=== PATIENT | male | born 1960 | race Caucasian/White ===

== ENCOUNTER → 2016-06-15 | Outpatient (CLI) | payer BC ==
[~2016-06-15] VITALS: Ht 185.4 cm; Wt 113.4 kg
[~2016-06-15] MED LIST: ALEV220C2 PO; ASPI81TA2 PO; ASPI81TA85 PO; LIDOCAINE 2% INJ 100 MG/5 ML SDV (FOR ANES.) As Ordered ONE; NEXI20CA PO; NS 1,000 ML IV SCH; PRAM1TAB3 PO; PROPOFOL 200 MG/20 ML VIAL As Ordered ONE; TYLE325T5 PO; ZANT150T PO
--- NOTE | 2016-06-15 11:22 | ROOR ---
Patient Name: Kyle Beckman Procedure Date: 06/15/2016 10:56 AM Date of : 1960 Age: 56 Room: [facility] Gender: Male Note Status: Finalized Procedure: Colonoscopy Indications: High risk colon cancer surveillance: Personal history of colonic polyps, Last colonoscopy: March 2013 Providers: Ronaldo ROCK MD Referring MD: Steve Becker MD Requesting Provider: Medicines: Monitored Anesthesia Care Complications: No immediate complications. Procedure: Pre-Anesthesia Assessment: - The heart rate, respiratory rate, oxygen saturations, blood pressure, adequacy of pulmonary ventilation, and response to care were monitored throughout the procedure. The Colonoscope was introduced through the anus and advanced to the cecum, identified by appendiceal orifice and ileocecal valve. The colonoscopy was performed without difficulty. The patient tolerated the procedure well. The quality of the bowel preparation was good. Findings: The perianal exam findings include a skin tag. (Exam: Complete, Prep: Good or Excellent.) Two sessile polyps were found in the proximal ascending colon. The polyps were diminutive in size. These polyps were removed with a cold snare. Resection and retrieval were complete. Multiple small and large-mouthed diverticula were found in the sigmoid colon. Small Internal Hemorrhoids. The exam was otherwise without abnormality on direct and retroflexion views. Impression: - Perianal skin tag found on perianal exam. - Two diminutive polyps in the proximal ascending colon, removed with a cold snare. Resected and retrieved. - Mild diverticulosis in the sigmoid colon. - Small Internal Hemorrhoids. - The examination was otherwise normal on direct and retroflexion views. Recommendation: - Await pathology results. - Telephone endoscopist for pathology results in 2 weeks. - Repeat colonoscopy in 5 years for surveillance based on personal history of previous adenomatous polyps. Ronaldo Rock MD Ronaldo ROCK MD 06/15/2016 11:22:11 AM This report has been signed electronically. Number of Addenda: 0 Note Initiated On: 06/15/2016 10:56 AM Estimated Blood Loss: Estimated blood loss: none.
[2016-06-15 11:50] VITALS: BP 154/89
== END | disposition home or self-care (01) ==
LOC: M OPP 09:58
PROVIDERS: ATTEND Internal Medicine Gastroenterology
DX: Z12.11 Encounter for screening for malignant neoplasm of colon (principal); D12.2 Benign neoplasm of ascending colon; K57.30 Diverticulosis of large intestine without perforation or abscess without bleeding; K64.8 Other hemorrhoids; Z86.010 Personal history of colon polyps; K42.9 Umbilical hernia without obstruction or gangrene; M19.90 Unspecified osteoarthritis, unspecified site; G47.30 Sleep apnea, unspecified; R06.83 Snoring; R12 Heartburn; Z87.891 Personal history of nicotine dependence; Z79.82 Long term (current) use of aspirin; Z79.899 Other long term (current) drug therapy; Z80.42 Family history of malignant neoplasm of prostate; Z80.8 Family history of malignant neoplasm of other organs or systems

== ENCOUNTER 2016-09-20 12:51 | Emergency (ER) | payer BC ==
[~2016-09-20] VITALS: Ht 185.4 cm; Wt 125.8 kg
[~2016-09-20 12:51] MED LIST changes: -LIDOCAINE 2% INJ 100 MG/5 ML SDV (FOR ANES.) As Ordered ONE; -NS 1,000 ML IV SCH; -PROPOFOL 200 MG/20 ML VIAL As Ordered ONE
[2016-09-20 13:34] LABS: MEAN CORPUSCULAR HEMOGLOBIN 27.3 pg (27.0-33.0); MEAN CORPUSCULAR HGB CONC 32.5 g/dl (32.0-36.5); RED CELL DISTRIBUTION WIDTH 14.2 % (11.5-14.5); WHITE BLOOD COUNT 6.3 K/mm3 (4.0-10.0)
[2016-09-20 13:46] LABS: INR 0.94
[2016-09-20 13:56] LABS: ANION GAP 6 MEQ/L (8-16); BLOOD UREA NITROGEN 25 MG/DL (7-18); CALCIUM LEVEL 8.3 MG/DL (8.5-10.1); CARBON DIOXIDE LEVEL 26 MEQ/L (21-32); CHLORIDE LEVEL 109 MEQ/L (98-107); CREATININE FOR GFR 1.07 MG/DL (0.70-1.30); GLOMERULAR FILTRATION RATE > 60.0 (>56); GLUCOSE, FASTING 95 MG/DL (70-105); SODIUM LEVEL 141 MEQ/L (136-145)
--- NOTE | 2016-09-20 14:01 | REP ---
Clinical: Pain and swelling . Technique: Og scale and color Doppler evaluation using linear high frequency transducer. Findings: Ultrasound examination of the right and left lower extremity deep venous structures from the common femoral vein to the popliteal vein demonstrates normal compressibility flow and wave patterns in response to respiration and augmentation. There is no evidence for deep venous thrombosis. Impression: No evidence for deep venous thrombosis bilateral lower extremities . Signed by Julian Avalos MD 09/20/2016 01:52 P
[2016-09-20] MEDS ORDERED: FUROSEMIDE 20 MG TAB PO ONE (14:15)
--- NOTE | 2016-09-20 14:15 | REP ---
Clinical: Chest pain . Comparison: 02/15/2016 . Technique: PA and lateral. Findings: The mediastinum and cardiac silhouette are normal. The lung guerrero are clear and without acute consolidation, effusion, or pneumothorax. The skeletal structures are intact and normal. Impression: 1. No acute cardiopulmonary process. Signed by Julian Avalos MD 09/20/2016 02:05 P
[2016-09-20 14:28] VITALS: BP 149/89
--- NOTE | 2016-09-22 07:16 | ECGEPIP ---
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
== END 2016-09-20 14:29 | disposition home or self-care (01) ==
LOC: M ED 14:24
DX: I73.9 Peripheral vascular disease, unspecified (principal); G62.9 Polyneuropathy, unspecified; Z87.891 Personal history of nicotine dependence; Z79.899 Other long term (current) drug therapy

== ENCOUNTER 2016-12-23 18:58 | Emergency (ER) | payer BC ==
[~2016-12-23] VITALS: Ht 185.4 cm; Wt 125.0 kg
[2016-12-23] MEDS ORDERED: DIGOXIN INJ 0.5 MG/2 ML AMP (J1160) IV STA (19:39)
[2016-12-23] MEDS ORDERED: METOPROLOL 5 MG/5 ML VIAL IV STA (20:21)
[2016-12-23] MEDS ORDERED: ASPIRIN 325 MG TAB PO ONE (20:30)
[2016-12-23 20:43] LABS: BASO % 0.4 % (0.0-1.0); EOS # 0.2 10^3/uL (0.0-0.50); EOS % 2.2 % (0.0-3.0); IMMATURE GRANULOCYTE % 0.3 % (0-0); LYMPH # 1.5 10^3/uL (1.5-4.5); LYMPH % 21.4 % (24.0-44.0); MEAN CORPUSCULAR HEMOGLOBIN 26.2 pg (27.0-33.0); MEAN CORPUSCULAR HGB CONC 32.1 g/dl (32.0-36.5); MEAN CORPUSCULAR VOLUME 81.8 fl (80.0-96.0); MONO # 0.8 10^3/uL (0.0-0.8); MONO % 12.2 % (0.0-5.0); NEUTROPHILS # 4.4 10^3/uL (1.8-7.7); NEUTROPHILS % 63.5 % (36.0-66.0); PLATELET COUNT, AUTOMATED 240 10^3/uL (150-450); RED CELL DISTRIBUTION WIDTH 15.3 % (11.5-14.5); WHITE BLOOD COUNT 6.9 10^3/uL (4.0-10.0)
[2016-12-23 20:47] LABS: ADD MORPHOLOGY? NO
[2016-12-23 20:52] LABS: ANION GAP 8 MEQ/L (8-16); BLOOD UREA NITROGEN 17 MG/DL (7-18); CALCIUM LEVEL 8.1 MG/DL (8.5-10.1); CARBON DIOXIDE LEVEL 25 MEQ/L (21-32); CHLORIDE LEVEL 111 MEQ/L (98-107); CREATININE FOR GFR 0.94 MG/DL (0.70-1.30); GLOMERULAR FILTRATION RATE > 60.0 (>56); GLUCOSE, FASTING 97 MG/DL (70-105); POTASSIUM SERUM 3.2 MEQ/L (3.5-5.1); SODIUM LEVEL 144 MEQ/L (136-145); T UPTAKE 36 % (33-40); THYROXINE (T4) 8.9 UG/DL (4.5-12.0)
[2016-12-23] MEDS ORDERED: DIGO0.259 PO (20:58)
[2016-12-23] MEDS ORDERED: ASPI81TA85 PO (20:58)
[2016-12-23 21:39] VITALS: BP 127/77
--- NOTE | 2016-12-25 05:59 | ECGEPIP ---
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
--- NOTE | 2016-12-25 06:00 | ECGEPIP ---
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
== END 2016-12-23 21:42 | disposition home or self-care (01) ==
LOC: M ED 19:58
DX: I48.91 Unspecified atrial fibrillation (principal); I48.92 Unspecified atrial flutter; K21.9 Gastro-esophageal reflux disease without esophagitis; G25.81 Restless legs syndrome; Z79.899 Other long term (current) drug therapy
CPT/HCPCS: 80048; 82550; 82553; 84436; 84443; 84479; 85025; 93005; 96374; 99284; J1160

== ENCOUNTER → 2017-01-07 | Outpatient (CLI) | payer BC ==
[~2017-01-07] MED LIST changes: +DIGO0.259 PO
[2017-01-07 06:44] LABS: MEAN CORPUSCULAR HEMOGLOBIN 26.1 pg (27.0-33.0); MEAN CORPUSCULAR HGB CONC 31.5 g/dl (32.0-36.5); MEAN CORPUSCULAR VOLUME 82.7 fl (80.0-96.0); RED CELL DISTRIBUTION WIDTH 15.8 % (11.5-14.5); WHITE BLOOD COUNT 4.9 10^3/uL (4.0-10.0)
[2017-01-07 07:15] LABS: ALKALINE PHOSPHATASE 61 U/L (45-117); ALT/SGPT 26 U/L (12-78); ANION GAP 6 MEQ/L (8-16); AST/SGOT 13 U/L (15-37); BILIRUBIN,TOTAL 0.4 MG/DL (0.2-1.0); BLOOD UREA NITROGEN 23 MG/DL (7-18); CALCIUM LEVEL 8.5 MG/DL (8.5-10.1); CARBON DIOXIDE LEVEL 28 MEQ/L (21-32); CHLORIDE LEVEL 109 MEQ/L (98-107); CREATININE FOR GFR 1.11 MG/DL (0.70-1.30); GLOMERULAR FILTRATION RATE > 60.0 (>56); GLUCOSE, FASTING 101 MG/DL (70-105); POTASSIUM SERUM 4.5 MEQ/L (3.5-5.1); SODIUM LEVEL 143 MEQ/L (136-145); TRIGLYCERIDES LEVEL 36 MG/DL (<150)
[2017-01-07 07:16] LABS: ALBUMIN 3.8 GM/DL (3.2-5.2); ALBUMIN/GLOBULIN RATIO 1.36 (1.00-1.93); CHOLESTEROL LEVEL 176 MG/DL (<200); TOTAL PROTEIN 6.6 GM/DL (6.4-8.2)
== END ==
LOC: M LAB 06:21
PROVIDERS: ATTEND Family Medicine
DX: G47.30 Sleep apnea, unspecified (principal); E78.2 Mixed hyperlipidemia; Z12.5 Encounter for screening for malignant neoplasm of prostate

== ENCOUNTER → 2017-10-15 | Outpatient (REF) | payer OTHER ==
[2017-10-15 19:39] LABS: HEMATOCRIT 41.4 % (42.0-52.0); HEMOGLOBIN 13.5 g/dl (13.5-17.5); MEAN CORPUSCULAR HEMOGLOBIN 27.7 pg (27.0-33.0); MEAN CORPUSCULAR HGB CONC 32.6 g/dl (32.0-36.5); PLATELET COUNT, AUTOMATED 220 10^3/uL (150-450); RED BLOOD COUNT 4.87 10^6/uL (4.30-6.10); RED CELL DISTRIBUTION WIDTH 15.3 % (11.5-14.5); WHITE BLOOD COUNT 6.1 10^3/uL (4.0-10.0)
[2017-10-15 19:51] LABS: ALBUMIN 3.9 GM/DL (3.2-5.2); ALBUMIN/GLOBULIN RATIO 1.34 (1.00-1.93); ALKALINE PHOSPHATASE 56 U/L (45-117); ALT/SGPT 27 U/L (12-78); ANION GAP 8 MEQ/L (8-16); AST/SGOT 15 U/L (7-37); BILIRUBIN,TOTAL 0.5 MG/DL (0.2-1.0); BLOOD UREA NITROGEN 23 MG/DL (7-18); CALCIUM LEVEL 8.6 MG/DL (8.5-10.1); CARBON DIOXIDE LEVEL 28 MEQ/L (21-32); CHLORIDE LEVEL 109 MEQ/L (98-107); CHOLESTEROL LEVEL 177 MG/DL (<200); CHOLESTEROL RISK RATIO 2.901 (<5); CREATININE FOR GFR 1.01 MG/DL (0.70-1.30); ESTIMATED AVERAGE GLUCOSE 117 MG/DL (60-110); FREE T4 1.03 NG/DL (0.76-1.46); GLOMERULAR FILTRATION RATE > 60.0 (>56); GLUCOSE, FASTING 88 MG/DL (70-100); HDL CHOLESTEROL 61 MG/DL (>40); HEMOGLOBIN A1c 5.7 %; LDL CHOLESTEROL 105.6 MG/DL (<100); MAGNESIUM LEVEL 2.4 MG/DL (1.8-2.4); NON-HDL-C 116 MG/DL; POTASSIUM SERUM 4.1 MEQ/L (3.5-5.1); PSA SCREENING 1.39 NG/ML (< 4.0); SODIUM LEVEL 145 MEQ/L (136-145); THYROID STIMULATING HORMONE 0.607 uIU/ML (0.358-3.740); TOTAL PROTEIN 6.8 GM/DL (6.4-8.2); TRIGLYCERIDES LEVEL 52 MG/DL (<150)
== END ==
LOC: M SFHCADAM 16:27
DX: R10.10 Upper abdominal pain, unspecified (principal); K42.0 Umbilical hernia with obstruction, without gangrene

== ENCOUNTER → 2017-12-23 | Outpatient (CLI) | payer OTHER ==
[2017-12-23 06:59] LABS: HEMATOCRIT 40.9 % (42.0-52.0); HEMOGLOBIN 12.8 g/dl (13.5-17.5); MEAN CORPUSCULAR HEMOGLOBIN 27.6 pg (27.0-33.0); MEAN CORPUSCULAR HGB CONC 31.3 g/dl (32.0-36.5); MEAN CORPUSCULAR VOLUME 88.1 fl (80.0-96.0); PLATELET COUNT, AUTOMATED 212 10^3/uL (150-450); RED BLOOD COUNT 4.64 10^6/uL (4.30-6.10); WHITE BLOOD COUNT 6.1 10^3/uL (4.0-10.0)
== END ==
LOC: M LAB 06:32
DX: G25.81 Restless legs syndrome (principal)
CPT/HCPCS: 85027

== ENCOUNTER → 2017-12-23 | Outpatient (CLI) | payer OTHER ==
[2017-12-29 08:49] LABS: Monitr Crohn's Disease SEE SEPARATE REPORT
== END ==
LOC: M LAB 06:36
DX: R10.9 Unspecified abdominal pain (principal)

== ENCOUNTER → 2018-02-23 | Outpatient (CLI) | payer OTHER ==
[~2018-02-23] MED LIST changes: -ALEV220C2 PO; -ASPI81TA2 PO; -ASPI81TA85 PO; -DIGO0.259 PO; +E-Z-PAQUE 96% w/w SUSP 176GM BTL As Ordered; -NEXI20CA PO; -PRAM1TAB3 PO; -TYLE325T5 PO; -ZANT150T PO
== END ==
LOC: M RAD 08:05
DX: K22.711 Barrett's esophagus with high grade dysplasia (principal); K42.9 Umbilical hernia without obstruction or gangrene; R10.84 Generalized abdominal pain
CPT/HCPCS: 74250

== ENCOUNTER 2018-04-05 09:31 | Day surgery (SDC) | payer OTHER ==
[~2018-04-05] VITALS: Ht 185.4 cm; Wt 111.1 kg
[~2018-04-05 09:31] MED LIST changes: +ALEV220C2 PO; +ASPI81TA2 PO; +ASPI81TA85 PO; +CANNABIS PO; +DIGO0.259 PO; -E-Z-PAQUE 96% w/w SUSP 176GM BTL As Ordered; +LR 1,000 ML IV ONE; +NEXI20CA PO; +PEPC1TAB5 PO; +PRAM1TAB7 PO; +ROPI0.5T PO; +TYLE325T5 PO; +TYLE650T35 PO; +ZANT150T PO; +ZANTTAB PO; +ceFAZolin SOD 1 GM in D5W MINI-BAG PLUS 50 ML IV ONE
[2018-04-05] MEDS ORDERED: MIDAZOLAM INJ 2 MG/2 ML VIAL (J2250) As Ordered ONE (09:36)
[2018-04-05] MEDS ORDERED: LIDOCAINE 2% INJ 100 MG/5 ML SDV (FOR ANES.) As Ordered ONE (09:36)
[2018-04-05] MEDS ORDERED: PROPOFOL 200 MG/20 ML VIAL As Ordered ONE (09:36)
[2018-04-05] MEDS ORDERED: fentaNYL 100 MCG/2 ML INJECTION (J3010) As Ordered ONE ×2 (09:36→12:05)
[2018-04-05] MEDS ORDERED: ONDANSETRON 4MG/2ML VIAL (J2405) As Ordered ONE (09:36)
[2018-04-05] MEDS ORDERED: METOCLOPRAMIDE INJ 10MG/2ML VIAL (J2765) As Ordered ONE (09:36)
[2018-04-05] MEDS ORDERED: ROCURONIUM BROMIDE 50 MG/5 ML VIAL As Ordered ONE (09:36)
[2018-04-05] MEDS ORDERED: BUPIVACAINE/EPIN 0.25% 30 ML VIAL As Ordered ONE (10:52)
[2018-04-05] MEDS ORDERED: BUPIVACAINE LIPOSOME/PF 1.3% 20ML VIAL (13.3MG/ML)(EXPAREL)(C9290 PER1MG) As Ordered ONE (10:53)
[2018-04-05] MEDS ORDERED: GLYCOPYRROLATE INJ 0.2 MG/ML 2 ML VIAL As Ordered ONE ×2 (10:53→11:56)
[2018-04-05] MEDS ORDERED: BUPIVACAINE HCL 0.25% 30 ML VIAL As Ordered ONE (11:09)
[2018-04-05] MEDS ORDERED: NEOSTIGMINE 10 MG/10 ML VIAL (J2710) As Ordered ONE (11:55)
[2018-04-05] MEDS ORDERED: PERCOCET 5MG/325MG TAB As Ordered ONE (12:15)
[2018-04-05] MEDS: MORPHINE 4 MG/ML 1ML VIAL/SYRINGE (J2270) IV PRN ×2 (12:30→12:40)
[2018-04-05] MEDS ORDERED: PERCOCET 5MG/325MG TAB PO PRN (12:30)
[2018-04-05] MEDS ORDERED: NORCO, ANEXSIA 5/325MG TABLET (HYDROcodone/ACETAMINOPHEN) PO PRN (12:30)
[2018-04-05] MEDS ORDERED: ONDANSETRON 4MG/2ML VIAL (J2405) IV PRN (12:30)
[2018-04-05] MEDS ORDERED: fentaNYL 100 MCG/2 ML INJECTION (J3010) IV PRN (12:30)
[2018-04-05] MEDS ORDERED: LR 1,000 ML IV SCH ×2 (12:30)
--- NOTE | 2018-04-05 12:33 | RO ---
DATE OF PROCEDURE: 04/05/2018 PREOPERATIVE DIAGNOSIS: Umbilical hernia. POSTOPERATIVE DIAGNOSIS: Umbilical hernia. PROCEDURE PERFORMED: Umbilical hernia repair with ventral patch. SURGEON: Dr. Mark Giles. PACKING ROOM WORKER: ANESTHESIA: General endotracheal anesthesia. ESTIMATED BLOOD LOSS: Minimal. FLUIDS: Crystalloid. DESCRIPTION OF PROCEDURE: The patient was brought to the operating room was given general anesthesia. After adequate anesthesia and preoperative antibiotics were given the patient was prepped and draped in sterile fashion. Next a periumbilical incision was made with skin knife. Blunt dissection was carried down to fascia following the hernia sac. The hernia sac was quite large and there was actually some ulceration on the umbilicus itself and I resected this area of the skin at the umbilicus. But in any case, the hernia sac was transected at the level of the fascia first putting clamps across the edges of the hernia sac and then ligating this with Vicryl ties. Eventually this was removed in its entirety. There was a great deal of preperitoneal fat that had come up from the inferior aspect of bladder area and at the umbilicus. But in any case, after all this had been ligated and transected the fascial defect was of such size that I felt he would benefit from a ventral patch. This was placed in the peritoneum abutting circumferentially and the fascial defect was closed with three [id number] 0-Ethibond sutures in a vertical manner. The dermis and was brought together with #3-0 Vicryl, #4-0 Vicryl was used to approximate the skin and Dermabond was used close the incision. Unfortunately, because of the skin loss that was appreciated with the ulceration at the umbilicus, the incision was right in the middle of the umbilicus and thus not amenable to placing typical Steri-Strips. Thus the 2 x 2s were placed on this as well as a medium OpSite and the patient was awakened, extubated, brought to recovery room awake, alert hemodynamic stable. Sponge and needle counts correct times two.
[2018-04-05 14:43] VITALS: BP 164/70
== END 2018-04-05 15:00 | disposition home or self-care (01) ==
LOC: M SDC 09:31
PROVIDERS: ATTEND Surgery
DX: K42.9 Umbilical hernia without obstruction or gangrene (principal); I48.0 Paroxysmal atrial fibrillation; K44.9 Diaphragmatic hernia without obstruction or gangrene; M12.9 Arthropathy, unspecified; G62.9 Polyneuropathy, unspecified; K21.9 Gastro-esophageal reflux disease without esophagitis; R06.83 Snoring; G47.30 Sleep apnea, unspecified; F17.200 Nicotine dependence, unspecified, uncomplicated; E66.09 Other obesity due to excess calories; Z68.32 Body mass index [BMI] 32.0-32.9, adult; Z79.899 Other long term (current) drug therapy
CPT/HCPCS: 49585; 88302; C1781; C9290; J0690; J2250; J2270; J2405; J2710; J2765; J3010

== ENCOUNTER → 2018-05-23 | Outpatient (REF) | payer OTHER ==
[~2018-05-23] MED LIST changes: -LR 1,000 ML IV ONE; -ceFAZolin SOD 1 GM in D5W MINI-BAG PLUS 50 ML IV ONE
== END ==
LOC: M LAB REF 18:53
PROVIDERS: ATTEND Surgery
DX: L72.3 Sebaceous cyst (principal)

== ENCOUNTER → 2018-09-06 | Outpatient (REF) | payer OTHER ==
[~2018-09-06] MED LIST changes: +ZANT150T40 PO; -ZANTTAB PO
[2018-09-06 20:07] LABS: FOLATE 14.5 NG/ML
== END ==
LOC: M SFHCADAM 11:59
PROVIDERS: ATTEND Physician Assistant
DX: D51.3 Other dietary vitamin B12 deficiency anemia (principal)

== ENCOUNTER → 2018-10-04 | Outpatient (REF) | payer OTHER | LOC: M SFHCPLAZ 13:28 | PROVIDERS: ATTEND Physician Assistant | DX: E53.8 Deficiency of other specified B group vitamins (principal) ==

== ENCOUNTER → 2018-10-11 | Outpatient (REF) | payer OTHER ==
[2018-10-11 19:57] LABS: HEMATOCRIT 43.1 % (42.0-52.0); HEMOGLOBIN 13.9 g/dl (13.5-17.5); MEAN CORPUSCULAR HEMOGLOBIN 28.7 pg (27.0-33.0); MEAN CORPUSCULAR HGB CONC 32.3 g/dl (32.0-36.5); MEAN CORPUSCULAR VOLUME 88.9 fl (80.0-96.0); PLATELET COUNT, AUTOMATED 228 10^3/uL (150-450); RED BLOOD COUNT 4.85 10^6/uL (4.30-6.10); WHITE BLOOD COUNT 5.6 10^3/uL (4.0-10.0)
[2018-10-11 20:09] LABS: ALBUMIN 4.2 GM/DL (3.2-5.2); ALT/SGPT 23 U/L (12-78); BILIRUBIN,TOTAL 0.6 MG/DL (0.2-1.0); BLOOD UREA NITROGEN 22 MG/DL (7-18); CALCIUM LEVEL 8.8 MG/DL (8.8-10.2); CARBON DIOXIDE LEVEL 31 MEQ/L (21-32); CHLORIDE LEVEL 108 MEQ/L (98-107); CREATININE FOR GFR 1.03 MG/DL (0.70-1.30); FREE T4 1.18 NG/DL (0.76-1.46); GLOMERULAR FILTRATION RATE > 60.0 (>49); GLUCOSE, FASTING 95 MG/DL (70-100); POTASSIUM SERUM 3.9 MEQ/L (3.5-5.1); SODIUM LEVEL 143 MEQ/L (136-145); THYROID STIMULATING HORMONE 0.893 uIU/ML (0.358-3.740); TOTAL PROTEIN 7.2 GM/DL (6.4-8.2)
== END ==
LOC: M SFHCADAM 14:36
PROVIDERS: ATTEND Family Medicine
DX: G25.81 Restless legs syndrome (principal); G62.9 Polyneuropathy, unspecified; F41.1 Generalized anxiety disorder; F41.8 Other specified anxiety disorders

== ENCOUNTER → 2018-10-23 | Outpatient (CLI) | payer OTHER ==
--- NOTE | 2018-10-25 09:29 | SLEEPCENT ---
DATE OF PROCEDURE: 10/23/2018 ORDERED BY: Natalie Reynolds NP Nocturnal polysomnography was performed for the titration of pressure therapy. Patient with obstructive sleep apnea syndrome. Apnea-hypopnea index 38.7. For testing, the patient was fit with a ResMed Air Fit N-30 nasal mask of medium size, 4 cm of water pressure were applied to the circuit, and the lights were extinguished. 7 hours and 18 minutes of data were reviewed. There 270 minutes of sleep identified. Sleep latency was short at 1.5 minutes. Rapid eye movement (REM) latency was mildly delayed at 153 minutes. Sleep architecture improved late in the study. There were three REM cycles. Overall sleep efficiency was 62.5%. The electrocardiogram showed what appeared to be a sinus rhythm with an average heart rate of 56 beats per minute. Electroencephalogram (EEG) showed normal waveforms for awake and sleep. Respiratory events were fully palliated with C-PAP to a pressure of +6. There was some scattered limb activity in the EMG leads. Limb movement arousal index was 8.2. IMPRESSION: Obstructive sleep apnea syndrome (G47.33). RECOMMENDATIONS: Nightly use of pressure therapy 6 cm of water.
== END ==
LOC: M SLEEP 20:00
PROVIDERS: ATTEND Nurse Practitioner Family
DX: G47.33 Obstructive sleep apnea (adult) (pediatric) (principal)

== ENCOUNTER → 2019-04-11 | Outpatient (REF) | payer OTHER ==
[2019-04-11 13:32] LABS: HEMATOCRIT 36.4 % (42.0-52.0); HEMOGLOBIN 10.9 g/dl (13.5-17.5); MEAN CORPUSCULAR HEMOGLOBIN 24.1 pg (27.0-33.0); MEAN CORPUSCULAR HGB CONC 29.9 g/dl (32.0-36.5); MEAN CORPUSCULAR VOLUME 80.5 fl (80.0-96.0); PLATELET COUNT, AUTOMATED 287 10^3/uL (150-450); RED BLOOD COUNT 4.52 10^6/uL (4.30-6.10); WHITE BLOOD COUNT 5.4 10^3/uL (4.0-10.0)
[2019-04-11 14:22] LABS: ALBUMIN 3.8 GM/DL (3.2-5.2); ALT/SGPT 29 U/L (12-78); BILIRUBIN,TOTAL 0.6 MG/DL (0.2-1.0); BLOOD UREA NITROGEN 18 MG/DL (7-18); CALCIUM LEVEL 8.7 MG/DL (8.8-10.2); CARBON DIOXIDE LEVEL 30 MEQ/L (21-32); CHLORIDE LEVEL 105 MEQ/L (98-107); CREATININE FOR GFR 1.05 MG/DL (0.70-1.30); FERRITIN 9 NG/ML (26-388); FREE T4 0.94 NG/DL (0.76-1.46); GLOMERULAR FILTRATION RATE > 60.0 (>49); GLUCOSE, FASTING 93 MG/DL (70-100); MAGNESIUM LEVEL 2.3 MG/DL (1.8-2.4); POTASSIUM SERUM 4.2 MEQ/L (3.5-5.1); SODIUM LEVEL 141 MEQ/L (136-145); THYROID STIMULATING HORMONE 0.461 uIU/ML (0.358-3.740); TOTAL PROTEIN 7.2 GM/DL (6.4-8.2); VITAMIN B12 LEVEL > 2000 PG/ML (247-911)
[2019-04-11 14:53] LABS: HEMOGLOBIN A1c 5.7 %
== END ==
LOC: M SFHCADAM 11:23
PROVIDERS: ATTEND Family Medicine
DX: G25.81 Restless legs syndrome (principal); E53.8 Deficiency of other specified B group vitamins; E74.9 Disorder of carbohydrate metabolism, unspecified; E78.2 Mixed hyperlipidemia; F41.0 Panic disorder [episodic paroxysmal anxiety]; F41.8 Other specified anxiety disorders

== ENCOUNTER → 2019-05-03 | Outpatient (REF) | payer OTHER ==
[~2019-05-03] MED LIST changes: -ROPI0.5T PO; +ROPI0.5T3 PO
[2019-05-03 18:17] LABS: BASO % 0.4 % (0.0-1.0); EOS # 0.1 10^3/uL (0.0-0.5); HEMATOCRIT 38.9 % (42.0-52.0); HEMOGLOBIN 11.8 g/dl (13.5-17.5); LYMPH # 1.3 10^3/uL (1.5-5.0); LYMPH % 25.2 % (24.0-44.0); MEAN CORPUSCULAR HEMOGLOBIN 25.1 pg (27.0-33.0); MEAN CORPUSCULAR HGB CONC 30.3 g/dl (32.0-36.5); MEAN CORPUSCULAR VOLUME 82.6 fl (80.0-96.0); MONO # 0.5 10^3/uL (0.0-0.8); MONO % 10.2 % (0.0-5.0); NEUTROPHILS # 3.1 10^3/uL (1.5-8.5); NEUTROPHILS % 61.8 % (36.0-66.0); PLATELET COUNT, AUTOMATED 301 10^3/uL (150-450); RED BLOOD COUNT 4.71 10^6/uL (4.30-6.10); WHITE BLOOD COUNT 5.1 10^3/uL (4.0-10.0)
[2019-05-03 18:33] LABS: HEMOGLOBIN A1c 5.5 %
[2019-05-03 18:42] LABS: ALBUMIN 4.1 GM/DL (3.2-5.2); ALT/SGPT 26 U/L (12-78); BILIRUBIN,TOTAL 0.4 MG/DL (0.2-1.0); BLOOD UREA NITROGEN 33 MG/DL (7-18); CALCIUM LEVEL 8.6 MG/DL (8.8-10.2); CARBON DIOXIDE LEVEL 29 MEQ/L (21-32); CHLORIDE LEVEL 106 MEQ/L (98-107); CREATININE FOR GFR 1.14 MG/DL (0.70-1.30); FERRITIN 14 NG/ML (26-388); FREE T4 1.16 NG/DL (0.76-1.46); GLOMERULAR FILTRATION RATE > 60.0 (>49); GLUCOSE, FASTING 91 MG/DL (70-100); IRON (FE) 39 UG/DL (65-175); PERCENT SATURATION 8.3 % (19.7-50.0); POTASSIUM SERUM 3.7 MEQ/L (3.5-5.1); RHEUMATOID FACTOR QUANT 17.9 IU/ML (<15.0); SODIUM LEVEL 141 MEQ/L (136-145); THYROID STIMULATING HORMONE 0.793 uIU/ML (0.358-3.740); TOTAL IRON BINDING CAPACITY 469 UG/DL (250-450); TOTAL PROTEIN 7.1 GM/DL (6.4-8.2)
[2019-05-03 18:45] LABS: FOLATE 13.5 NG/ML; VITAMIN B12 LEVEL 1474 PG/ML
[2019-05-03 18:57] LABS: ERYTHROCYTE SEDIMENTATION RATE 6 mm/hr (0-20)
[2019-05-04 12:12] LABS: ALPHA-1-GLOBULIN % 4.5 % (2.9-4.9); ALPHA-1-GLOBULINS 0.32 GM/DL (0.17-0.41); ALPHA-2-GLOBULINS 0.68 GM/DL (0.42-0.99); ALPHA-2-GLOBULINS % 9.6 % (7.1-11.8); BETA-1-GLOBULINS 0.53 GM/DL (0.28-0.60); BETA-1-GLOBULINS % 7.5 % (4.7-7.2); BETA-2-GLOBULINS 0.33 GM/DL (0.19-0.55); BETA-2-GLOBULINS % 4.7 % (3.2-6.5); GAMMA GLOBULIN % 11.7 % (11.1-18.8); GAMMA GLOBULINS 0.83 GM/DL (0.65-1.58)
== END ==
LOC: M LABNEURO 12:02
PROVIDERS: ATTEND Psychiatry & Neurology Neurology
DX: E11.9 Type 2 diabetes mellitus without complications (principal); E07.9 Disorder of thyroid, unspecified; D50.9 Iron deficiency anemia, unspecified; G90.09 Other idiopathic peripheral autonomic neuropathy

== ENCOUNTER → 2019-05-25 | Outpatient (REF) | payer OTHER, SELFPAY ==
[2019-05-25 19:11] LABS: HEMATOCRIT 39.4 % (42.0-52.0); HEMOGLOBIN 11.8 g/dl (13.5-17.5); MEAN CORPUSCULAR HEMOGLOBIN 25.4 pg (27.0-33.0); MEAN CORPUSCULAR HGB CONC 29.9 g/dl (32.0-36.5); MEAN CORPUSCULAR VOLUME 84.7 fl (80.0-96.0); PLATELET COUNT, AUTOMATED 238 10^3/uL (150-450); RED BLOOD COUNT 4.65 10^6/uL (4.30-6.10); WHITE BLOOD COUNT 6.2 10^3/uL (4.0-10.0)
[2019-05-25 19:43] LABS: PERCENT SATURATION 7.9 % (19.7-50.0)
== END ==
LOC: M SFHCADAM 16:59
PROVIDERS: ATTEND Family Medicine
DX: D50.0 Iron deficiency anemia secondary to blood loss (chronic) (principal)

== ENCOUNTER → 2019-07-19 | Outpatient (REF) | payer BC ==
[2019-07-19 17:31] LABS: HEMOGLOBIN 13.6 g/dl (13.5-17.5); MEAN CORPUSCULAR HEMOGLOBIN 26.6 pg (27.0-33.0); MEAN CORPUSCULAR HGB CONC 31.6 g/dl (32.0-36.5); MEAN CORPUSCULAR VOLUME 84.1 fl (80.0-96.0); PLATELET COUNT, AUTOMATED 229 10^3/uL (150-450); RED BLOOD COUNT 5.11 10^6/uL (4.30-6.10); WHITE BLOOD COUNT 5.8 10^3/uL (4.0-10.0)
[2019-07-19 17:38] LABS: ALBUMIN 3.9 GM/DL (3.2-5.2); ALT/SGPT 32 U/L (12-78); BILIRUBIN,TOTAL 0.4 MG/DL (0.2-1.0); BLOOD UREA NITROGEN 20 MG/DL (7-18); CALCIUM LEVEL 8.8 MG/DL (8.8-10.2); CARBON DIOXIDE LEVEL 28 MEQ/L (21-32); CHLORIDE LEVEL 109 MEQ/L (98-107); FERRITIN 15 NG/ML (26-388); GLOMERULAR FILTRATION RATE > 60.0 (>49); GLUCOSE, FASTING 95 MG/DL (70-100); IRON (FE) 70 UG/DL (65-175); PERCENT SATURATION 16.5 % (19.7-50.0); POTASSIUM SERUM 3.9 MEQ/L (3.5-5.1); SODIUM LEVEL 141 MEQ/L (136-145); TOTAL IRON BINDING CAPACITY 424 UG/DL (250-450)
== END ==
LOC: M SFHCADAM 13:42
PROVIDERS: ATTEND Family Medicine
DX: D50.0 Iron deficiency anemia secondary to blood loss (chronic) (principal); G47.33 Obstructive sleep apnea (adult) (pediatric); R60.0 Localized edema

== ENCOUNTER 2019-07-27 13:29 | Outpatient (CLI) | payer BC ==
[~2019-07-27] VITALS: Ht 182.9 cm; Wt 120.5 kg
[2019-07-27 13:35] VITALS: BP 124/65
[2019-07-27] MEDS ORDERED: IRON SUCROSE 75 MG in NS 100 ML IV ONE (14:00)
[2019-07-27] MEDS ORDERED: IRON SUCROSE 25 MG in NS 25 ML IV ONE (14:00)
[2019-07-27] MEDS ORDERED: IRON SUCROSE 75 MG in NS 75 ML IV ONE (14:00)
[2019-07-27 14:35] VITALS: BP 113/65
[2019-07-27 15:54] VITALS: BP 130/62
== END 2019-07-27 16:00 | disposition home or self-care (01) ==
LOC: M INFU 13:29
PROVIDERS: ATTEND Family Medicine
DX: D50.9 Iron deficiency anemia, unspecified (principal)
CPT/HCPCS: 96365; J1756

== ENCOUNTER → 2019-07-31 | Outpatient (CLI) | payer BC | LOC: M RAD 14:37 | PROVIDERS: ATTEND Physician Assistant | DX: M79.606 Pain in leg, unspecified (principal); I87.2 Venous insufficiency (chronic) (peripheral) ==

== ENCOUNTER 2019-08-03 13:32 | Outpatient (CLI) | payer BC ==
[~2019-08-03] VITALS: Ht 182.9 cm; Wt 120.5 kg
[2019-08-03] MEDS ORDERED: IRON SUCROSE 200 MG in NS 200 ML IV ONE (13:45)
[2019-08-03 13:48] VITALS: BP 131/76
[2019-08-03 15:00] VITALS: BP 142/72
[2019-08-03 16:20] VITALS: BP 134/75
[2019-08-03 16:35] VITALS: BP 156/81
== END 2019-08-03 16:35 | disposition home or self-care (01) ==
LOC: M INFU 13:32
PROVIDERS: ATTEND Family Medicine
DX: D50.9 Iron deficiency anemia, unspecified (principal)
CPT/HCPCS: 96365; 96366; J1756

== ENCOUNTER → 2019-08-15 | Outpatient (CLI) | payer BC ==
--- NOTE | 2019-08-17 09:59 | REP ---
REPEAT DICTATION BILATERAL LOWER EXTREMITY VENOUS ULTRASOUND: Reflux study. History: Venous insufficiency. Pain. FINDINGS: In the right lower extremity venous system there is no evidence of superficial system reflux. There is some deep system reflux with the bed tilted but none in the standing position. Reflux greater than 0.5-second duration was observed with the bed tilted in the proximal mid and distal superficial femoral vein on the right. The right greater saphenous vein measures 5.7 mm, 4.6 mm, and 3.0 mm in AP dimension respectively at the proximal, mid thigh, and knee level. The lesser saphenous vein measures 4.1 mm. In the left lower extremity, there is no identifiable deep or superficial system venous reflux. The greater saphenous vein measurements are 5.7 mm, 6.2 mm, and 4.3 mm in AP dimension respectively at the proximal, mid thigh, and knee level. The lesser saphenous vein is 3.8 mm in diameter. IMPRESSION: Minimal reflux on the right in the deep system with the bed tilted. Otherwise negative. Electronically Signed by Kenny Rodriguez MD 08/17/2019 10:01 A
== END ==
LOC: M RAD 10:53
PROVIDERS: ATTEND Physician Assistant
DX: M79.606 Pain in leg, unspecified (principal); I87.2 Venous insufficiency (chronic) (peripheral)

== ENCOUNTER → 2019-09-01 | Outpatient (CLI) | payer BC ==
--- NOTE | 2019-09-06 13:19 | SLEEPCENT ---
DATE OF STUDY: 09/01/2019 ORDERED BY: Natalie Reynolds Nocturnal polysomnography was performed for evaluation of sleep physiology in this patient with a history of excessive somnolence and nonrestorative sleep. 8 hours and 1 minute of data were reviewed. There were 354 minutes of sleep identified. Sleep latency was short at 2 minutes. REM latency was short at 47 minutes. Sleep architecture was initially fragmented and improved later in the study after interventions. Overall sleep efficiency was 74.4%. The patient's electrocardiogram showed a sinus rhythm with an average heart rate 50 beats per minute. Electroencephalogram (EEG) showed normal waveforms for awake and sleep. There were 77 respiratory events identified of 10 seconds in duration or greater for an apnea-hypopnea index of 13.1. The events were obstructive, not exclusive to sleep stage and resulted in oxygen desaturations into the low 80s. Given the frequency of events early in the course of study, the diagnosis of obstructive sleep apnea syndrome was clearly established. Testing was therefore stopped shortly after midnight for the application of pressure therapy. The patient was fit with a ResMed Air Fit F20 full face mask of large size and 5 cm of water pressure were applied to the circuit and the lights were extinguished. Throughout the remaining hours of testing, pressure titration was performed to the optimal pressure of +9, with which the patient slept through REM without respiratory event or oxygen desaturation. IMPRESSION: Obstructive sleep apnea syndrome (G47.33). Apnea-hypopnea index 13.1. RECOMMENDATION: Nightly use of pressure therapy at 9 cm of water.
== END ==
LOC: M SLEEP 20:00
PROVIDERS: ATTEND Nurse Practitioner Family
DX: G47.33 Obstructive sleep apnea (adult) (pediatric) (principal)

== ENCOUNTER → 2019-09-08 | Outpatient (REF) | payer BC ==
[2019-09-08 18:03] LABS: HEMATOCRIT 44.4 % (42.0-52.0); HEMOGLOBIN 13.9 g/dl (13.5-17.5); MEAN CORPUSCULAR HEMOGLOBIN 26.8 pg (27.0-33.0); MEAN CORPUSCULAR HGB CONC 31.3 g/dl (32.0-36.5); MEAN CORPUSCULAR VOLUME 85.5 fl (80.0-96.0); PLATELET COUNT, AUTOMATED 223 10^3/uL (150-450); RED BLOOD COUNT 5.19 10^6/uL (4.30-6.10); WHITE BLOOD COUNT 6.6 10^3/uL (4.0-10.0)
[2019-09-08 18:34] LABS: BLOOD UREA NITROGEN 24 MG/DL (7-18); CALCIUM LEVEL 8.6 MG/DL (8.8-10.2); CARBON DIOXIDE LEVEL 30 MEQ/L (21-32); CHLORIDE LEVEL 107 MEQ/L (98-107); CREATININE FOR GFR 1.26 MG/DL (0.70-1.30); FERRITIN 56 NG/ML (26-388); GLOMERULAR FILTRATION RATE > 60.0 (>49); GLUCOSE, FASTING 80 MG/DL (70-100); IRON (FE) 48 UG/DL (65-175); PERCENT SATURATION 11.7 % (19.7-50.0); SODIUM LEVEL 143 MEQ/L (136-145); TOTAL IRON BINDING CAPACITY 412 UG/DL (250-450)
== END ==
LOC: M SFHCADAM 15:58
PROVIDERS: ATTEND Family Medicine
DX: D50.0 Iron deficiency anemia secondary to blood loss (chronic) (principal); R60.0 Localized edema

== ENCOUNTER → 2019-11-23 | Outpatient (REF) | payer BC ==
[~2019-11-23] MED LIST changes: +ACET650T61 PO; -ASPI81TA85 PO; +ASPI81TA86 PO; -TYLE650T35 PO
[2019-11-23 18:58] LABS: HEMATOCRIT 41.9 % (42.0-52.0); HEMOGLOBIN 12.9 g/dl (13.5-17.5); MEAN CORPUSCULAR HEMOGLOBIN 27.2 pg (27.0-33.0); MEAN CORPUSCULAR HGB CONC 30.8 g/dl (32.0-36.5); MEAN CORPUSCULAR VOLUME 88.4 fl (80.0-96.0); PLATELET COUNT, AUTOMATED 254 10^3/uL (150-450); RED BLOOD COUNT 4.74 10^6/uL (4.30-6.10); WHITE BLOOD COUNT 6.1 10^3/uL (4.0-10.0)
[2019-11-23 19:03] LABS: ALBUMIN 3.9 GM/DL (3.2-5.2); ALT/SGPT 24 U/L (12-78); BILIRUBIN,TOTAL 0.4 MG/DL (0.2-1.0); BLOOD UREA NITROGEN 24 MG/DL (7-18); CALCIUM LEVEL 8.9 MG/DL (8.8-10.2); CARBON DIOXIDE LEVEL 30 MEQ/L (21-32); CHLORIDE LEVEL 108 MEQ/L (98-107); CREATININE FOR GFR 1.29 MG/DL (0.70-1.30); FERRITIN 18 NG/ML (26-388); GLOMERULAR FILTRATION RATE > 60.0 (>49); GLUCOSE, FASTING 90 MG/DL (70-100); IRON (FE) 44 UG/DL (65-175); PERCENT SATURATION 10.5 % (19.7-50.0); POTASSIUM SERUM 4.1 MEQ/L (3.5-5.1); SODIUM LEVEL 142 MEQ/L (136-145); TOTAL IRON BINDING CAPACITY 420 UG/DL (250-450); TOTAL PROTEIN 7.2 GM/DL (6.4-8.2)
== END ==
LOC: M SFHCADAM 18:14
PROVIDERS: ATTEND Family Medicine
DX: D50.0 Iron deficiency anemia secondary to blood loss (chronic) (principal); R60.0 Localized edema

== ENCOUNTER → 2020-01-07 | Outpatient (CLI) | payer BC ==
[2020-01-07 09:24] LABS: CHOLESTEROL RISK RATIO 2.356 (<5); FREE T4 0.96 NG/DL (0.76-1.46); THYROID STIMULATING HORMONE 0.507 uIU/ML (0.358-3.740)
== END ==
LOC: M LAB 08:16
PROVIDERS: ATTEND Family Medicine
DX: R60.9 Edema, unspecified (principal); E78.2 Mixed hyperlipidemia

== ENCOUNTER → 2020-03-05 | Outpatient (REF) | payer BC ==
[2020-03-05 13:39] LABS: CALCIUM LEVEL 8.8 MG/DL (8.8-10.2); CREATININE FOR GFR 1.34 MG/DL (0.70-1.30); GLOMERULAR FILTRATION RATE 57.5 (>49); MAGNESIUM LEVEL 2.3 MG/DL (1.8-2.4)
== END ==
LOC: M PLALAB 09:31
PROVIDERS: ATTEND Family Medicine
DX: R60.0 Localized edema (principal)

== ENCOUNTER → 2020-05-10 | Outpatient (REF) | payer BC ==
[2020-05-10 13:57] LABS: HEMATOCRIT 41.3 % (42.0-52.0); HEMOGLOBIN 12.4 g/dl (13.5-17.5); MEAN CORPUSCULAR HEMOGLOBIN 24.6 pg (27.0-33.0); MEAN CORPUSCULAR VOLUME 81.9 fl (80.0-96.0); PLATELET COUNT, AUTOMATED 266 10^3/uL (150-450); RED BLOOD COUNT 5.04 10^6/uL (4.30-6.10); WHITE BLOOD COUNT 6.5 10^3/uL (4.0-10.0)
[2020-05-10 14:15] LABS: HEMOGLOBIN A1c 5.7 %
[2020-05-10 14:29] LABS: ALBUMIN 4.1 GM/DL (3.2-5.2); ALT/SGPT 32 U/L (12-78); BILIRUBIN,TOTAL 0.4 MG/DL (0.2-1.0); BLOOD UREA NITROGEN 25 MG/DL (7-18); CALCIUM LEVEL 9.2 MG/DL (8.8-10.2); CARBON DIOXIDE LEVEL 31 MEQ/L (21-32); CHLORIDE LEVEL 106 MEQ/L (98-107); GLOMERULAR FILTRATION RATE > 60.0 (>49); GLUCOSE, FASTING 97 MG/DL (70-100); POTASSIUM SERUM 4.3 MEQ/L (3.5-5.1); SODIUM LEVEL 142 MEQ/L (136-145); TOTAL PROTEIN 7.1 GM/DL (6.4-8.2)
== END ==
LOC: M PLALAB 11:24
PROVIDERS: ATTEND Family Medicine
DX: D51.3 Other dietary vitamin B12 deficiency anemia (principal); R79.9 Abnormal finding of blood chemistry, unspecified; E74.9 Disorder of carbohydrate metabolism, unspecified

== ENCOUNTER → 2020-05-15 | Outpatient (REF) | payer BC ==
[2020-05-15 19:25] LABS: PERCENT SATURATION 8.8 % (19.7-50.0)
== END ==
LOC: M SFHCADAM 16:13
PROVIDERS: ATTEND Family Medicine
DX: D50.0 Iron deficiency anemia secondary to blood loss (chronic) (principal)

== ENCOUNTER 2020-06-20 11:58 | Outpatient (CLI) | payer BC ==
[~2020-06-20] VITALS: Ht 182.9 cm; Wt 120.0 kg
[2020-06-20] MEDS ORDERED: IRON SUCROSE 100 MG in NS 100 ML IV ONE (12:30)
[2020-06-20 12:46] VITALS: BP 134/74
[2020-06-20 13:55] VITALS: BP 130/65
== END 2020-06-20 13:59 | disposition home or self-care (01) ==
LOC: M INFU 11:58
PROVIDERS: ATTEND Family Medicine
DX: D50.9 Iron deficiency anemia, unspecified (principal)
CPT/HCPCS: 96365; J1756

== ENCOUNTER → 2020-06-26 | Outpatient (REF) | payer BC ==
[2020-06-26 13:05] LABS: HEMATOCRIT 40.6 % (42.0-52.0); HEMOGLOBIN 12.2 g/dl (13.5-17.5); MEAN CORPUSCULAR HEMOGLOBIN 25.3 pg (27.0-33.0); MEAN CORPUSCULAR VOLUME 84.1 fl (80.0-96.0); PLATELET COUNT, AUTOMATED 271 10^3/uL (150-450); RED BLOOD COUNT 4.83 10^6/uL (4.30-6.10); WHITE BLOOD COUNT 7.9 10^3/uL (4.0-10.0)
[2020-06-26 13:40] LABS: BLOOD UREA NITROGEN 24 MG/DL (7-18); CALCIUM LEVEL 8.9 MG/DL (8.8-10.2); CARBON DIOXIDE LEVEL 32 MEQ/L (21-32); CHLORIDE LEVEL 103 MEQ/L (98-107); CREATININE FOR GFR 1.16 MG/DL (0.70-1.30); GLOMERULAR FILTRATION RATE > 60.0 (>49); GLUCOSE, FASTING 100 MG/DL (70-100); NT-PRO BNP 47 PG/ML (<125); POTASSIUM SERUM 3.9 MEQ/L (3.5-5.1); SODIUM LEVEL 141 MEQ/L (136-145)
== END ==
LOC: M SFHCADAM 09:30
PROVIDERS: ATTEND Family Medicine
DX: R60.0 Localized edema (principal); D50.0 Iron deficiency anemia secondary to blood loss (chronic)

== ENCOUNTER → 2020-06-26 | Outpatient (CLI) | payer BC ==
--- NOTE | 2020-06-26 11:51 | REP ---
INDICATION: ASCITES. COMPARISON: None. TECHNIQUE: Limited abdominal ultrasound for ascites: Ultrasonography of all 4 quadrants of the abdomen is performed. Patient complains of occasional abdominal sharp pain related to motion or movement. FINDINGS: Ultrasonography of all 4 abdominal quadrants identifies no ascites. IMPRESSION: There is no evidence of abdominal ascites. <Electronically signed by Enoc Kahn > 06/26/20 1148
== END ==
LOC: M RAD 11:23
PROVIDERS: ATTEND Family Medicine
DX: R18.8 Other ascites (principal)

== ENCOUNTER → 2020-06-26 | Outpatient (CLI) | payer BC ==
--- NOTE | 2020-06-26 10:52 | REP ---
INDICATION: AMOS(OBSTRUCTIVE SLEEP APNEA), EDEMA OF BOTH LOWER EXTREMITIE COMPARISON: 06/30/2017 TECHNIQUE: PA and lateral. FINDINGS: The mediastinum and cardiac silhouette are normal. The lung guerrero are clear and without acute consolidation, effusion, or pneumothorax. The skeletal structures are intact and normal. IMPRESSION: No acute cardiopulmonary process. <Electronically signed by Julian Avalos > 06/26/20 [id number]
== END ==
LOC: M ADAMS 09:42
PROVIDERS: ATTEND Family Medicine
DX: R60.0 Localized edema (principal); G47.33 Obstructive sleep apnea (adult) (pediatric)

== ENCOUNTER 2020-06-27 10:52 | Outpatient (CLI) | payer BC ==
[2020-06-27] MEDS ORDERED: IRON SUCROSE 200 MG in NS 200 ML IV ONE (11:00)
[2020-06-27 11:09] VITALS: BP 129/60
[2020-06-27 12:55] VITALS: BP 134/72
== END 2020-06-27 12:55 | disposition home or self-care (01) ==
LOC: M INFU 10:52
PROVIDERS: ATTEND Family Medicine
DX: D50.9 Iron deficiency anemia, unspecified (principal)
CPT/HCPCS: 96365; J1756

== ENCOUNTER 2020-07-04 12:27 | Outpatient (CLI) | payer BC ==
[~2020-07-04] VITALS: Ht 180.3 cm; Wt 120.0 kg
[2020-07-04 12:30] VITALS: BP 161/85
[2020-07-04] MEDS ORDERED: IRON SUCROSE 200 MG in NS 200 ML IV ONE (12:30)
[2020-07-04 14:23] VITALS: BP 111/60
== END 2020-07-04 14:20 | disposition home or self-care (01) ==
LOC: M INFU 12:27
PROVIDERS: ATTEND Family Medicine
DX: D50.9 Iron deficiency anemia, unspecified (principal)
CPT/HCPCS: 96365; J1756

== ENCOUNTER → 2020-07-19 | Outpatient (REF) | payer BC ==
[2020-07-19 13:33] LABS: HEMATOCRIT 42.5 % (42.0-52.0); HEMOGLOBIN 13.3 g/dl (13.5-17.5); MEAN CORPUSCULAR HEMOGLOBIN 26.6 pg (27.0-33.0); MEAN CORPUSCULAR HGB CONC 31.3 g/dl (32.0-36.5); PLATELET COUNT, AUTOMATED 276 10^3/uL (150-450)
[2020-07-19 14:06] LABS: ALBUMIN 4.1 GM/DL (3.2-5.2); ALT/SGPT 30 U/L (12-78); BILIRUBIN,TOTAL 0.4 MG/DL (0.2-1.0); BLOOD UREA NITROGEN 30 MG/DL (7-18); CALCIUM LEVEL 9.4 MG/DL (8.8-10.2); CARBON DIOXIDE LEVEL 31 MEQ/L (21-32); CHLORIDE LEVEL 106 MEQ/L (98-107); CREATININE FOR GFR 1.28 MG/DL (0.70-1.30); FERRITIN 90 NG/ML (26-388); GLOMERULAR FILTRATION RATE > 60.0 (>49); GLUCOSE, FASTING 106 MG/DL (70-100); IRON (FE) 43 UG/DL (65-175); PERCENT SATURATION 11.2 % (19.7-50.0); POTASSIUM SERUM 4.1 MEQ/L (3.5-5.1); SODIUM LEVEL 142 MEQ/L (136-145); TOTAL IRON BINDING CAPACITY 383 UG/DL (250-450); TOTAL PROTEIN 7.1 GM/DL (6.4-8.2)
== END ==
LOC: M SFHCADAM 10:00
PROVIDERS: ATTEND Family Medicine
DX: D50.0 Iron deficiency anemia secondary to blood loss (chronic) (principal); R18.8 Other ascites

== ENCOUNTER → 2020-08-30 | Outpatient (REF) | payer BC ==
[2020-08-30 13:07] LABS: HEMATOCRIT 44.7 % (42.0-52.0); HEMOGLOBIN 13.6 g/dl (13.5-17.5); MEAN CORPUSCULAR HEMOGLOBIN 26.4 pg (27.0-33.0); MEAN CORPUSCULAR HGB CONC 30.4 g/dl (32.0-36.5); MEAN CORPUSCULAR VOLUME 86.6 fl (80.0-96.0); PLATELET COUNT, AUTOMATED 292 10^3/uL (150-450); RED BLOOD COUNT 5.16 10^6/uL (4.30-6.10); WHITE BLOOD COUNT 6.7 10^3/uL (4.0-10.0)
[2020-08-30 15:16] LABS: ALT/SGPT 31 U/L (12-78); BILIRUBIN,TOTAL 0.4 MG/DL (0.2-1.0); BLOOD UREA NITROGEN 25 MG/DL (7-18); CARBON DIOXIDE LEVEL 35 MEQ/L (21-32); CHLORIDE LEVEL 101 MEQ/L (98-107); CREATININE FOR GFR 1.22 MG/DL (0.70-1.30); FERRITIN 37 NG/ML (26-388); GLOMERULAR FILTRATION RATE > 60.0 (>49); GLUCOSE, FASTING 98 MG/DL (70-100); IRON (FE) 48 UG/DL (65-175); NT-PRO BNP 51 PG/ML (<125); PERCENT SATURATION 11.2 % (19.7-50.0); POTASSIUM SERUM 4.3 MEQ/L (3.5-5.1); SODIUM LEVEL 140 MEQ/L (136-145); TOTAL IRON BINDING CAPACITY 430 UG/DL (250-450); TOTAL PROTEIN 7.6 GM/DL (6.4-8.2)
== END ==
LOC: M SFHCADAM 09:22
PROVIDERS: ATTEND Family Medicine
DX: D50.0 Iron deficiency anemia secondary to blood loss (chronic) (principal); R60.0 Localized edema; Z12.5 Encounter for screening for malignant neoplasm of prostate
CPT/HCPCS: 80053; 82728; 83550; 83880; 85027; G0103

== ENCOUNTER → 2020-10-15 | Outpatient (REF) | payer BC ==
[2020-10-15 16:46] LABS: HEMATOCRIT 43.3 % (42.0-52.0); HEMOGLOBIN 13.5 g/dl (13.5-17.5); MEAN CORPUSCULAR HEMOGLOBIN 27.1 pg (27.0-33.0); MEAN CORPUSCULAR HGB CONC 31.2 g/dl (32.0-36.5); MEAN CORPUSCULAR VOLUME 86.8 fl (80.0-96.0); PLATELET COUNT, AUTOMATED 265 10^3/uL (150-450); RED BLOOD COUNT 4.99 10^6/uL (4.30-6.10); WHITE BLOOD COUNT 7.8 10^3/uL (4.0-10.0)
[2020-10-15 18:26] LABS: ALBUMIN 4.1 GM/DL (3.2-5.2); ALT/SGPT 36 U/L (12-78); BILIRUBIN,TOTAL 0.4 MG/DL (0.2-1.0); BLOOD UREA NITROGEN 25 MG/DL (7-18); CALCIUM LEVEL 9.7 MG/DL (8.8-10.2); CARBON DIOXIDE LEVEL 33 MEQ/L (21-32); CHLORIDE LEVEL 105 MEQ/L (98-107); CREATININE FOR GFR 1.29 MG/DL (0.70-1.30); FERRITIN 26 NG/ML (26-388); GLOMERULAR FILTRATION RATE > 60.0 (>49); GLUCOSE, FASTING 96 MG/DL (70-100); IRON (FE) 47 UG/DL (65-175); MAGNESIUM LEVEL 2.7 MG/DL (1.8-2.4); PERCENT SATURATION 10.5 % (19.7-50.0); POTASSIUM SERUM 4.5 MEQ/L (3.5-5.1); SODIUM LEVEL 142 MEQ/L (136-145); TOTAL IRON BINDING CAPACITY 449 UG/DL (250-450); TOTAL PROTEIN 7.6 GM/DL (6.4-8.2)
== END ==
LOC: M SFHCADAM 15:30
PROVIDERS: ATTEND Family Medicine
DX: D50.0 Iron deficiency anemia secondary to blood loss (chronic) (principal); E87.6 Hypokalemia

== ENCOUNTER 2020-10-24 20:28 | Emergency (ER) | payer BC ==
[~2020-10-24] VITALS: Ht 175.3 cm; Wt 137.7 kg
[2020-10-24] MEDS ORDERED: PRAM1TAB75 PO (23:24)
[2020-10-24] MEDS ORDERED: TORS20TA2 PO (23:24)
[2020-10-24] MEDS ORDERED: TOPA50TA8 PO (23:24)
[2020-10-24] MEDS ORDERED: SPIR-10 PO (23:24)
[2020-10-24] MEDS ORDERED: OMEP40CA4 PO (23:24)
[2020-10-24] MEDS ORDERED: DILT120C78 PO (23:24)
[2020-10-24] MEDS ORDERED: B-12100T2 PO (23:24)
[2020-10-24] MEDS ORDERED: K-TA1TAB PO (23:24)
[2020-10-24] MEDS ORDERED: ASPI-1 PO (23:24)
--- NOTE | 2020-10-24 23:43 | REPVR ---
PROCEDURE INFORMATION: Exam: XR Left Tibia and Fibula Exam date and time: 10/24/2020 11:04 PM Age: 60 years old Clinical indication: Other: Cellulitis, R/O bone involvement, underlying injury TECHNIQUE: Imaging protocol: XR Left tibia and fibula. Views: 2 views. COMPARISON: US Duplex, Ext LOWER veins, bilat 08/15/2019 11:17 AM FINDINGS: Bones/joints: The osseous structures are intact. Soft tissues: Diffuse soft tissue edema. IMPRESSION: 1. Diffuse soft tissue edema consistent with cellulitis. 2. Otherwise negative left tibia and fibula. The osseous structures are intact. Electronically signed by: Chandana Rene On 10/24/2020 23:42:50 PM
[2020-10-24 23:53] LABS: BASO % 0.3 % (0.0-1.0); EOS # 0.2 10^3/uL (0.0-0.5); EOS % 2.1 % (0.0-3.0); HEMATOCRIT 43.6 % (42.0-52.0); HEMOGLOBIN 13.5 g/dl (13.5-17.5); LYMPH # 1.4 10^3/uL (1.5-5.0); LYMPH % 13.3 % (24.0-44.0); MEAN CORPUSCULAR HEMOGLOBIN 27.3 pg (27.0-33.0); MEAN CORPUSCULAR VOLUME 88.3 fl (80.0-96.0); MONO % 9.4 % (2.0-8.0); NEUTROPHILS # 7.9 10^3/uL (1.5-8.5); NEUTROPHILS % 74.6 % (36.0-66.0); PLATELET COUNT, AUTOMATED 249 10^3/uL (150-450); RED BLOOD COUNT 4.94 10^6/uL (4.30-6.10); WHITE BLOOD COUNT 10.6 10^3/uL (4.0-10.0)
[2020-10-25 00:05] LABS: C REACTIVE PROTEIN QUANTITATIV 0.75 MG/DL (0.00-0.30)
[2020-10-25] MEDS ORDERED: cefTRIAXone SOD 1 GM in D5W MINI-BAG PLUS 50 ML IV ONE (00:30)
--- NOTE | 2020-10-25 00:32 | REPVR ---
PROCEDURE INFORMATION: Exam: US Duplex Left Lower Extremity Veins, Limited Exam date and time: 10/25/2020 12:09 AM Age: 60 years old Clinical indication: Edema, localized and other: Redness; Lower extremity, left; Additional info: Erythema, warmth, tender TECHNIQUE: Imaging protocol: Real-time Duplex ultrasound of the Left Lower Extremity with 2-D meier scale, color Doppler flow and spectral waveform analysis with image documentation. Limited exam focused on the left lower extremity veins. COMPARISON: US Duplex, Ext LOWER veins, bilat 08/15/2019 11:17 AM FINDINGS: Left deep veins: Unremarkable. The common femoral, femoral, proximal profunda femoral and popliteal veins are patent without thrombus. Normal Doppler waveforms. Normal compressibility and/or augmentation response. The left calf veins are not seen due to calf edema. Left superficial veins: Unremarkable. Saphenofemoral junction is patent without thrombus. Soft tissues: Unremarkable. IMPRESSION: Negative left lower extremity venous duplex exam without evidence of deep venous thrombosis. The left calf veins are not seen due to edema. Electronically signed by: Chandana Rene On 10/25/2020 00:32:04 AM
[2020-10-25 00:34] LABS: ERYTHROCYTE SEDIMENTATION RATE 9 mm/hr (0-20)
[2020-10-25 00:38] LABS: BLOOD UREA NITROGEN 22 MG/DL (7-18); CALCIUM LEVEL 8.3 MG/DL (8.8-10.2); CARBON DIOXIDE LEVEL 33 MEQ/L (21-32); CHLORIDE LEVEL 103 MEQ/L (98-107); CREATININE FOR GFR 1.29 MG/DL (0.70-1.30); GLOMERULAR FILTRATION RATE > 60.0 (>49); GLUCOSE, FASTING 116 MG/DL (70-100); POTASSIUM SERUM 3.7 MEQ/L (3.5-5.1); SODIUM LEVEL 139 MEQ/L (136-145)
[2020-10-25] MEDS ORDERED: CEPH500C PO (00:52)
[2020-10-25 00:58] VITALS: BP 129/73
== END 2020-10-25 01:37 | disposition home or self-care (01) ==
LOC: M ED 20:28
DX: L03.116 Cellulitis of left lower limb (principal); I48.91 Unspecified atrial fibrillation; K21.9 Gastro-esophageal reflux disease without esophagitis; G25.81 Restless legs syndrome; Z79.82 Long term (current) use of aspirin; Z79.899 Other long term (current) drug therapy
CPT/HCPCS: 73590; 80048; 85025; 85652; 86140; 93971; 96365; 99284; J0696

== ENCOUNTER → 2020-11-07 | Outpatient (CLI) | payer BC ==
[~2020-11-07] MED LIST changes: +ASPI-1 PO; +B-12100T2 PO; +CEPH500C PO; +DILT120C78 PO; +K-TA1TAB PO; +OMEP40CA4 PO; +PRAM1TAB75 PO; +SPIR-10 PO; +TOPA50TA8 PO; +TORS20TA2 PO
--- NOTE | 2020-11-07 09:15 | REP ---
INDICATION: RT KNEE OA. COMPARISON: None. TECHNIQUE: Multiple sequences obtained in the axial, coronal and sagittal planes. FINDINGS: Menisci: There is an extensive complex tear of the posterior horn of the medial meniscus. There is a tear of the body and posterior horn of the lateral meniscus. Cruciate ligaments: Intact. Collateral ligaments: Intact. Extensor mechanism/patellar retinacula: Intact. Cartilage: There is moderate diffuse chondromalacia of the femoral condyles and tibial plateaus. There is severe chondromalacia of the patella, with thinning and fissuring down to the bone. Bone marrow: There is mild subchondral marrow edema in the patella. Joint fluid: There is a moderate joint effusion. Popliteal region: No cyst. Superficial venous varicosities are seen posteriorly. There is diffuse superficial soft tissue edema. IMPRESSION: Extensive complex tear posterior horn medial meniscus. There is also a tear of the body and posterior horn of the lateral meniscus. The cruciate and collateral ligaments are intact. There is diffuse chondromalacia as discussed in detail above. Moderate joint effusion. <Electronically signed by Enoc Og > 11/07/20 [id number]
== END ==
LOC: M PLAIMG 07:38
PROVIDERS: ATTEND Physician Assistant Surgical
DX: S83.231A Complex tear of medial meniscus, current injury, right knee, initial encounter (principal); M17.11 Unilateral primary osteoarthritis, right knee; X58.XXXA Exposure to other specified factors, initial encounter; Y92.9 Unspecified place or not applicable

== ENCOUNTER → 2020-11-12 | Outpatient (REF) | payer BC ==
[2020-11-12 17:52] LABS: APPEARANCE, URINE CLEAR (CLEAR); BACTERIA, URINE AUTO NEGATIVE (NEGATIVE); BILIRUBIN, URINE AUTO NEGATIVE (NEGATIVE); BLOOD, URINE BLOOD NEGATIVE (NEGATIVE); COLOR, URINE STRAW (YELLOW); GLUCOSE, URINE (UA) AUTO NEGATIVE (NEGATIVE); KETONE, URINE AUTO NEGATIVE (NEGATIVE); LEUKOCYTE ESTERASE, URINE AUTO NEGATIVE (NEGATIVE); MUCUS, URINE SMALL (NEGATIVE); NITRITE, URINE AUTO NEGATIVE (NEGATIVE); PROTEIN, URINE AUTO NEGATIVE (NEGATIVE); RBC, URINE AUTO 0 /HPF (0-3); SPECIFIC GRAVITY URINE AUTO 1.012 (1.002-1.035); SQUAMOUS EPITHELIAL CELL UR AU 0 /HPF (0-6); UROBILINOGEN, URINE AUTO 0.2 mg/dL (0.0-2.0); WBC, URINE AUTO 0 /HPF (0-3)
== END ==
LOC: M LAB REF 16:56
PROVIDERS: ATTEND Physician Assistant Medical
DX: L02.91 Cutaneous abscess, unspecified (principal)

== ENCOUNTER → 2021-01-24 | Outpatient (REF) | payer BC ==
[2021-01-24 13:39] LABS: HEMOGLOBIN 13.5 g/dl (13.5-17.5); MEAN CORPUSCULAR HEMOGLOBIN 27.1 pg (27.0-33.0); MEAN CORPUSCULAR HGB CONC 30.7 g/dl (32.0-36.5); MEAN CORPUSCULAR VOLUME 88.2 fl (80.0-96.0); PLATELET COUNT, AUTOMATED 249 10^3/uL (150-450); RED BLOOD COUNT 4.99 10^6/uL (4.30-6.10); WHITE BLOOD COUNT 5.5 10^3/uL (4.0-10.0)
[2021-01-24 14:19] LABS: BLOOD UREA NITROGEN 21 MG/DL (7-18); CALCIUM LEVEL 9.4 MG/DL (8.8-10.2); CARBON DIOXIDE LEVEL 31 MEQ/L (21-32); CHLORIDE LEVEL 105 MEQ/L (98-107); CREATININE FOR GFR 1.13 MG/DL (0.70-1.30); FERRITIN 48 NG/ML (26-388); GLOMERULAR FILTRATION RATE > 60.0 (>49); GLUCOSE, FASTING 105 MG/DL (70-100); IRON (FE) 66 UG/DL (65-175); MAGNESIUM LEVEL 2.7 MG/DL (1.8-2.4); PERCENT SATURATION 15.9 % (19.7-50.0); POTASSIUM SERUM 4.4 MEQ/L (3.5-5.1); SODIUM LEVEL 142 MEQ/L (136-145); TOTAL IRON BINDING CAPACITY 414 UG/DL (250-450)
== END ==
LOC: M SFHCADAM 08:52
PROVIDERS: ATTEND Family Medicine
DX: G25.81 Restless legs syndrome (principal); D50.0 Iron deficiency anemia secondary to blood loss (chronic); I48.0 Paroxysmal atrial fibrillation

== ENCOUNTER → 2021-05-09 | Outpatient (CLI) | payer BC ==
[2021-05-09 07:15] LABS: HEMATOCRIT 41.2 % (42.0-52.0); HEMOGLOBIN 12.9 g/dl (13.5-17.5); MEAN CORPUSCULAR HEMOGLOBIN 27.5 pg (27.0-33.0); MEAN CORPUSCULAR HGB CONC 31.3 g/dl (32.0-36.5); MEAN CORPUSCULAR VOLUME 87.8 fl (80.0-96.0); PLATELET COUNT, AUTOMATED 226 10^3/uL (150-450); RED BLOOD COUNT 4.69 10^6/uL (4.30-6.10)
[2021-05-09 07:35] LABS: HEMOGLOBIN A1c 5.7 %
[2021-05-09 07:51] LABS: ALBUMIN 3.6 GM/DL (3.2-5.2); BILIRUBIN,TOTAL 0.5 MG/DL (0.2-1.0); CALCIUM LEVEL 8.4 MG/DL (8.8-10.2); CHOLESTEROL RISK RATIO 2.265 (<5); CREATININE FOR GFR 1.5 MG/DL (0.70-1.30); FREE T4 1.14 NG/DL (0.76-1.46); GLOMERULAR FILTRATION RATE 50.3 (>49); MAGNESIUM LEVEL 2.4 MG/DL (1.8-2.4); PERCENT SATURATION 14.4 % (19.7-50.0); POTASSIUM SERUM 3.4 MEQ/L (3.5-5.1); THYROID STIMULATING HORMONE 1.49 uIU/ML (0.358-3.740); TOTAL PROTEIN 6.6 GM/DL (6.4-8.2)
== END ==
LOC: M LAB 06:28
PROVIDERS: ATTEND Family Medicine
DX: D50.0 Iron deficiency anemia secondary to blood loss (chronic) (principal); I48.0 Paroxysmal atrial fibrillation; E78.2 Mixed hyperlipidemia; E74.9 Disorder of carbohydrate metabolism, unspecified

== ENCOUNTER → 2021-06-12 | Outpatient (REF) | payer BC | LOC: M LAB REF 12:02 | PROVIDERS: ATTEND Physician Assistant Medical | DX: L03.119 Cellulitis of unspecified part of limb (principal); L02.91 Cutaneous abscess, unspecified ==

== ENCOUNTER 2021-07-14 13:06 | Outpatient (RCR) | payer BC | END 2021-07-19 | LOC: M PT 13:06 | PROVIDERS: ATTEND Surgery | DX: I87.311 Chronic venous hypertension (idiopathic) with ulcer of right lower extremity (principal) ==

== ENCOUNTER 2021-07-30 19:05 | Emergency (ER) | payer BC ==
[~2021-07-30] VITALS: Ht 170.2 cm; Wt 138.6 kg
[2021-07-30 19:05] VITALS: BP 115/79
[2021-07-30 19:52] LABS: BASO % 0.5 % (0.0-1.0); EOS # 0.3 10^3/uL (0.0-0.5); EOS % 3.4 % (0.0-3.0); HEMOGLOBIN 12.6 g/dl (13.5-17.5); LYMPH # 1.2 10^3/uL (1.5-5.0); LYMPH % 14.1 % (24.0-44.0); MEAN CORPUSCULAR HEMOGLOBIN 26.8 pg (27.0-33.0); MEAN CORPUSCULAR HGB CONC 31.5 g/dl (32.0-36.5); MEAN CORPUSCULAR VOLUME 84.9 fl (80.0-96.0); MONO # 0.8 10^3/uL (0.0-0.8); MONO % 10.2 % (2.0-8.0); NEUTROPHILS # 5.8 10^3/uL (1.5-8.5); NEUTROPHILS % 71.4 % (36.0-66.0); PLATELET COUNT, AUTOMATED 241 10^3/uL (150-450); RED BLOOD COUNT 4.71 10^6/uL (4.30-6.10); WHITE BLOOD COUNT 8.2 10^3/uL (4.0-10.0)
[2021-07-30 20:05] LABS: INR 0.91; PROTHROMBIN TIME 12.7 SECONDS (12.7-14.5)
[2021-07-30 20:12] LABS: CK-MB VALUE MASS 3.6 NG/ML (<3.6); MB/CK RELATIVE INDEX 1.68 (< OR =4)
[2021-07-30 20:30] LABS: ALBUMIN 3.6 GM/DL (3.2-5.2); BILIRUBIN,DIRECT 0.1 MG/DL (0.0-0.2); BILIRUBIN,TOTAL 0.3 MG/DL (0.2-1.0); CALCIUM LEVEL 8.6 MG/DL (8.8-10.2); CREATININE FOR GFR 1.44 MG/DL (0.70-1.30); FREE T4 0.99 NG/DL (0.76-1.46); GLOMERULAR FILTRATION RATE 52.7 (>49); POTASSIUM SERUM 3.6 MEQ/L (3.5-5.1); THYROID STIMULATING HORMONE 1.03 uIU/ML (0.358-3.740); TOTAL PROTEIN 6.8 GM/DL (6.4-8.2)
[2021-07-30 20:37] LABS: MAGNESIUM LEVEL 2.4 MG/DL (1.8-2.4)
== END 2021-07-30 21:26 | disposition home or self-care (01) ==
LOC: M ED 19:05
DX: I48.0 Paroxysmal atrial fibrillation (principal); I51.7 Cardiomegaly; G47.33 Obstructive sleep apnea (adult) (pediatric); E66.01 Morbid (severe) obesity due to excess calories; K21.9 Gastro-esophageal reflux disease without esophagitis; Z79.899 Other long term (current) drug therapy; Z79.82 Long term (current) use of aspirin

== ENCOUNTER → 2021-08-04 | Outpatient (CLI) | payer BC ==
[2021-08-04 07:00] LABS: HEMATOCRIT 40.3 % (42.0-52.0); HEMOGLOBIN 12.5 g/dl (13.5-17.5); MEAN CORPUSCULAR HEMOGLOBIN 26.9 pg (27.0-33.0); MEAN CORPUSCULAR VOLUME 86.7 fl (80.0-96.0); PLATELET COUNT, AUTOMATED 253 10^3/uL (150-450); RED BLOOD COUNT 4.65 10^6/uL (4.30-6.10); WHITE BLOOD COUNT 6.9 10^3/uL (4.0-10.0)
[2021-08-04 07:26] LABS: BLOOD UREA NITROGEN 27 MG/DL (7-18); CALCIUM LEVEL 8.6 MG/DL (8.8-10.2); CARBON DIOXIDE LEVEL 33 MEQ/L (21-32); CHLORIDE LEVEL 105 MEQ/L (98-107); CREATININE FOR GFR 1.27 MG/DL (0.70-1.30); FERRITIN 28 NG/ML (26-388); GLOMERULAR FILTRATION RATE > 60.0 (>49); GLUCOSE, FASTING 114 MG/DL (70-100); IRON (FE) 52 UG/DL (65-175); MAGNESIUM LEVEL 2.7 MG/DL (1.8-2.4); PERCENT SATURATION 13.2 % (19.7-50.0); POTASSIUM SERUM 3.9 MEQ/L (3.5-5.1); SODIUM LEVEL 141 MEQ/L (136-145); TOTAL IRON BINDING CAPACITY 394 UG/DL (250-450)
== END ==
LOC: M LAB 06:13
PROVIDERS: ATTEND Family Medicine
DX: D50.0 Iron deficiency anemia secondary to blood loss (chronic) (principal)

== ENCOUNTER 2021-08-11 15:00 | Outpatient (RCR) | payer BC | END 2021-08-19 | LOC: M PT 15:00 | PROVIDERS: ATTEND Surgery | DX: I87.311 Chronic venous hypertension (idiopathic) with ulcer of right lower extremity (principal) ==

== ENCOUNTER → 2021-08-22 | Outpatient (CLI) | payer BC ==
[2021-08-22 14:40] LABS: HEMATOCRIT 41.6 % (42.0-52.0); HEMOGLOBIN 12.9 g/dl (13.5-17.5); MEAN CORPUSCULAR HEMOGLOBIN 26.4 pg (27.0-33.0); MEAN CORPUSCULAR VOLUME 85.2 fl (80.0-96.0); PLATELET COUNT, AUTOMATED 256 10^3/uL (150-450); RED BLOOD COUNT 4.88 10^6/uL (4.30-6.10); WHITE BLOOD COUNT 8.2 10^3/uL (4.0-10.0)
[2021-08-22 16:08] LABS: CREATININE FOR GFR 1.37 MG/DL (0.70-1.30); GLOMERULAR FILTRATION RATE 55.9 (>49); MAGNESIUM LEVEL 2.4 MG/DL (1.8-2.4)
== END ==
LOC: M PLALAB 10:53
PROVIDERS: ATTEND Physician Assistant
DX: R60.0 Localized edema (principal); I48.0 Paroxysmal atrial fibrillation

== ENCOUNTER → 2021-08-25 | Outpatient (CLI) | payer BC | LOC: M LABSMTC 10:08 → SMC HOSP 08-29 08:52 | PROVIDERS: ATTEND Anesthesiology | DX: Z01.812 Encounter for preprocedural laboratory examination (principal) ==

== ENCOUNTER 2021-08-29 09:30 | Day surgery (SDC) | payer BC ==
[~2021-08-29] VITALS: Ht 180.3 cm; Wt 152.4 kg
[~2021-08-29 09:30] MED LIST changes: +NS 1,000 ML IV ONE
[2021-08-29] MEDS ORDERED: LIDOCAINE 2% 100MG/5ML SDV (FOR ANES.) As Ordered ONE (11:09)
[2021-08-29] MEDS ORDERED: propofoL 200 MG/20 ML VIAL As Ordered ONE (11:09)
[2021-08-29] MEDS ORDERED: ePHEDrine SULFATE 25 MG/5 ML(5MG/ML) SYRINGE As Ordered ONE (11:11)
[2021-08-29 11:46] VITALS: BP 123/58
== END 2021-08-29 11:46 | disposition home or self-care (01) ==
LOC: M OPP 09:30
PROVIDERS: ATTEND Internal Medicine Gastroenterology
DX: Z12.11 Encounter for screening for malignant neoplasm of colon (principal); Z86.010 Personal history of colon polyps; D12.0 Benign neoplasm of cecum; D12.5 Benign neoplasm of sigmoid colon; K57.30 Diverticulosis of large intestine without perforation or abscess without bleeding; K64.8 Other hemorrhoids; Z79.1 Long term (current) use of non-steroidal anti-inflammatories (NSAID); Z79.82 Long term (current) use of aspirin; Z79.899 Other long term (current) drug therapy

== ENCOUNTER 2021-09-16 11:23 | Inpatient (IN) | payer BC ==
[~2021-09-16] VITALS: Ht 180.3 cm; Wt 154.0 kg
[~2021-09-16 11:23] MED LIST changes: -NS 1,000 ML IV ONE
[2021-09-16] MEDS ORDERED: ELIQ5TAB PO (11:47)
[2021-09-16] MEDS ORDERED: NS 1,000 ML IV ONE (12:35)
[2021-09-16 13:16] LABS: BASO % 0.1 % (0.0-1.0); HEMATOCRIT 38.6 % (42.0-52.0); LYMPH # 0.5 10^3/uL (1.5-5.0); LYMPH % 2.6 % (24.0-44.0); MEAN CORPUSCULAR HEMOGLOBIN 26.3 pg (27.0-33.0); MEAN CORPUSCULAR HGB CONC 31.1 g/dl (32.0-36.5); MEAN CORPUSCULAR VOLUME 84.5 fl (80.0-96.0); MONO # 0.8 10^3/uL (0.0-0.8); MONO % 3.7 % (2.0-8.0); NEUTROPHILS # 19.2 10^3/uL (1.5-8.5); NEUTROPHILS % 92.4 % (36.0-66.0); PLATELET COUNT, AUTOMATED 250 10^3/uL (150-450); RED BLOOD COUNT 4.57 10^6/uL (4.30-6.10); WHITE BLOOD COUNT 20.8 10^3/uL (4.0-10.0)
[2021-09-16 13:30] LABS: INR 1.01; PROTHROMBIN TIME 13.7 SECONDS (12.7-14.5)
[2021-09-16 13:31] LABS: PARTIAL THROMBOPLASTIN TIME 34.4 SECONDS (25.9-37.0)
[2021-09-16 13:40] LABS: ALBUMIN 3.2 GM/DL (3.2-5.2); ALT/SGPT 35 U/L (12-78); BILIRUBIN,DIRECT 0.2 MG/DL (0.0-0.2); BILIRUBIN,TOTAL 0.5 MG/DL (0.2-1.0); BLOOD UREA NITROGEN 20 MG/DL (7-18); C REACTIVE PROTEIN QUANTITATIV 7.45 MG/DL (0.00-0.30); CALCIUM LEVEL 8.8 MG/DL (8.8-10.2); CARBON DIOXIDE LEVEL 28 MEQ/L (21-32); CHLORIDE LEVEL 108 MEQ/L (98-107); CREATININE FOR GFR 1.22 MG/DL (0.70-1.30); GLOMERULAR FILTRATION RATE > 60.0 (>49); GLUCOSE, FASTING 119 MG/DL (70-100); POTASSIUM SERUM 3.4 MEQ/L (3.5-5.1); SODIUM LEVEL 143 MEQ/L (136-145); TOTAL PROTEIN 6.6 GM/DL (6.4-8.2)
[2021-09-16 13:48] LABS: ERYTHROCYTE SEDIMENTATION RATE 37 mm/hr (0-20)
[2021-09-16 13:53] LABS: RSV AMPLIFICATION NEGATIVE (NEGATIVE)
[2021-09-16] MEDS ORDERED: VANCOMYCIN HCL 2,000 MG in IV FLUID PLACE HOLDER 1 EA IV ONE (15:20)
[2021-09-16] MEDS ORDERED: VANCOMYCIN HCL 1,000 MG, VIAL MATE ADAPTER 1 EACH in NS 250 ML IV ONE ×6 (15:25)
[2021-09-16] MEDS ORDERED: traMADol 50 MG TAB PO PRN (16:05)
[2021-09-16] MEDS ORDERED: OMEP1CAP73 PO (16:17)
[2021-09-16] MEDS ORDERED: MIRA1TAB3 PO (16:17)
[2021-09-16] MEDS ORDERED: DILT60CASR PO (16:17)
[2021-09-16] MEDS ORDERED: HOME MED LIST COMPLETE! XX SCH (16:20)
[2021-09-16] MEDS ORDERED: PILL CUTTER 1 EACH XX PRN (17:00)
[2021-09-16] MEDS: PIPERACILLIN/TAZOBACTAM SOD 3.375 GM in D5W MINI-BAG PLUS 50 ML IV SCH (17:00)
[2021-09-16] MEDS: APIXABAN 5 MG TAB (ELIQUIS) PO SCH (21:16)
[2021-09-16] MEDS: OMEPRAZOLE 20MG CAP PO SCH (21:16)
[2021-09-16] MEDS: TOPIRAMATE (TopAMAX) 25 MG TAB PO SCH (21:16)
[2021-09-16] MEDS: POTASSIUM CHLORIDE 10MEQ SR TABLET PO SCH (21:16)
[2021-09-17] MEDS: PIPERACILLIN/TAZOBACTAM SOD 3.375 GM in D5W MINI-BAG PLUS 50 ML IV SCH ×4 (00:22→18:53)
[2021-09-17] MEDS: VANCOMYCIN HCL 750 MG, VIAL MATE ADAPTER 1 EACH in NS 250 ML IV SCH ×2 (02:56→15:15)
[2021-09-17] MEDS ORDERED: VANCOMYCIN HCL 1,000 MG, VIAL MATE ADAPTER 1 EACH in NS 250 ML IV SCH (04:00)
[2021-09-17] MEDS: VANCOMYCIN HCL 500 MG in D5W MINI-BAG PLUS 100 ML IV SCH ×2 (04:00→17:13)
[2021-09-17 07:08] LABS: HEMATOCRIT 35.4 % (42.0-52.0); HEMOGLOBIN 10.6 g/dl (13.5-17.5); MEAN CORPUSCULAR HEMOGLOBIN 25.5 pg (27.0-33.0); MEAN CORPUSCULAR HGB CONC 29.9 g/dl (32.0-36.5); MEAN CORPUSCULAR VOLUME 85.1 fl (80.0-96.0); PLATELET COUNT, AUTOMATED 200 10^3/uL (150-450); RED BLOOD COUNT 4.16 10^6/uL (4.30-6.10); WHITE BLOOD COUNT 13.5 10^3/uL (4.0-10.0)
[2021-09-17] MEDS: PRAMIPEXOLE 1 MG TAB PO SCH ×3 (07:27→20:53)
[2021-09-17 07:31] LABS: BLOOD UREA NITROGEN 16 MG/DL (7-18); CALCIUM LEVEL 8.2 MG/DL (8.8-10.2); CARBON DIOXIDE LEVEL 23 MEQ/L (21-32); CHLORIDE LEVEL 110 MEQ/L (98-107); CREATININE FOR GFR 1.18 MG/DL (0.70-1.30); GLOMERULAR FILTRATION RATE > 60.0 (>49); GLUCOSE, FASTING 112 MG/DL (70-100); MAGNESIUM LEVEL 2.3 MG/DL (1.8-2.4); POTASSIUM SERUM 3.6 MEQ/L (3.5-5.1); SODIUM LEVEL 141 MEQ/L (136-145)
[2021-09-17 07:32] LABS: ERYTHROCYTE SEDIMENTATION RATE 50 mm/hr (0-20)
[2021-09-17] MEDS: POTASSIUM CHLORIDE 10MEQ SR TABLET PO SCH ×2 (07:52→20:53)
[2021-09-17] MEDS: APIXABAN 5 MG TAB (ELIQUIS) PO SCH ×2 (07:52→20:53)
[2021-09-17] MEDS: OMEPRAZOLE 20MG CAP PO SCH ×2 (07:52→20:53)
[2021-09-17] MEDS: ACETAMINOPHEN TAB 650MG DOSE (2X325MG) PO PRN (15:19)
[2021-09-17 16:15] VITALS: BP 121/63
[2021-09-17] MEDS: PERCOCET 5MG/325MG TAB PO PRN (17:21)
[2021-09-17] MEDS: TOPIRAMATE (TopAMAX) 25 MG TAB PO SCH (20:53)
[2021-09-17 21:25] VITALS: BP 119/61
[2021-09-18] MEDS: PIPERACILLIN/TAZOBACTAM SOD 3.375 GM in D5W MINI-BAG PLUS 50 ML IV SCH ×4 (00:07→17:15)
[2021-09-18] MEDS: VANCOMYCIN HCL 750 MG, VIAL MATE ADAPTER 1 EACH in NS 250 ML IV SCH (03:33)
[2021-09-18] MEDS: VANCOMYCIN HCL 500 MG in D5W MINI-BAG PLUS 100 ML IV SCH (04:57)
[2021-09-18 06:00] VITALS: BP 115/63
[2021-09-18 06:28] LABS: HEMATOCRIT 35.7 % (42.0-52.0); MEAN CORPUSCULAR HEMOGLOBIN 26.1 pg (27.0-33.0); MEAN CORPUSCULAR HGB CONC 30.8 g/dl (32.0-36.5); MEAN CORPUSCULAR VOLUME 84.8 fl (80.0-96.0); PLATELET COUNT, AUTOMATED 197 10^3/uL (150-450); RED BLOOD COUNT 4.21 10^6/uL (4.30-6.10); WHITE BLOOD COUNT 12.7 10^3/uL (4.0-10.0)
[2021-09-18 06:58] LABS: BLOOD UREA NITROGEN 15 MG/DL (7-18); CALCIUM LEVEL 8.5 MG/DL (8.8-10.2); CARBON DIOXIDE LEVEL 27 MEQ/L (21-32); CHLORIDE LEVEL 109 MEQ/L (98-107); CREATININE FOR GFR 1.03 MG/DL (0.70-1.30); GLOMERULAR FILTRATION RATE > 60.0 (>49); GLUCOSE, FASTING 120 MG/DL (70-100); POTASSIUM SERUM 3.9 MEQ/L (3.5-5.1); SODIUM LEVEL 140 MEQ/L (136-145)
[2021-09-18] MEDS: OMEPRAZOLE 20MG CAP PO SCH ×2 (09:02→21:08)
[2021-09-18] MEDS: LACTOBACILLUS ACIDOPHILUS CAP (BACID) PO SCH ×2 (09:02→17:15)
[2021-09-18] MEDS: PRAMIPEXOLE 1 MG TAB PO SCH ×2 (09:03→21:08)
[2021-09-18] MEDS: APIXABAN 5 MG TAB (ELIQUIS) PO SCH ×2 (09:03→21:08)
[2021-09-18] MEDS: POTASSIUM CHLORIDE 10MEQ SR TABLET PO SCH ×2 (09:03→21:08)
[2021-09-18] MEDS: PERCOCET 5MG/325MG TAB PO PRN ×2 (09:04→17:16)
[2021-09-18 14:00] VITALS: BP 134/64
[2021-09-18] MEDS: VANCOMYCIN HCL 1,000 MG, VIAL MATE ADAPTER 1 EACH in NS 250 ML IV SCH ×2 (15:30→23:24)
[2021-09-18 21:00] VITALS: BP 108/55
[2021-09-18] MEDS: TOPIRAMATE (TopAMAX) 25 MG TAB PO SCH (21:08)
[2021-09-18] MEDS: ACETAMINOPHEN TAB 650MG DOSE (2X325MG) PO PRN (23:24)
[2021-09-19] MEDS: PIPERACILLIN/TAZOBACTAM SOD 3.375 GM in D5W MINI-BAG PLUS 50 ML IV SCH ×5 (00:55→22:08)
[2021-09-19] MEDS ORDERED: COMBIVENT RESPIMAT 100-20MCG INHALER 4GM INH PRN (04:15)
[2021-09-19 06:00] VITALS: BP 140/73
[2021-09-19 06:03] LABS: VENOUS BASE EXCESS -0.5 (-2.0-2.0); VENOUS HCO3 24.5 MEQ/L (23.0-27.0); VENOUS O2 SATURATION 85.2 % (60.0-80.0); VENOUS PARTIAL PRESSURE CO2 41.8 mmHg (38.0-50.0); VENOUS PARTIAL PRESSURE O2 48.8 mmHg (30.0-50.0); VENOUS PH 7.386 UNITS (7.330-7.430); VENOUS STANDARD HCO3 23.8 MEQ/L; VENOUS TOTAL CO2 25.8 MEQ/L (24.0-28.0)
[2021-09-19 06:11] LABS: HEMATOCRIT 35.9 % (42.0-52.0); HEMOGLOBIN 11.1 g/dl (13.5-17.5); MEAN CORPUSCULAR HEMOGLOBIN 26.2 pg (27.0-33.0); MEAN CORPUSCULAR HGB CONC 30.9 g/dl (32.0-36.5); MEAN CORPUSCULAR VOLUME 84.9 fl (80.0-96.0); PLATELET COUNT, AUTOMATED 203 10^3/uL (150-450); RED BLOOD COUNT 4.23 10^6/uL (4.30-6.10); WHITE BLOOD COUNT 7.3 10^3/uL (4.0-10.0)
[2021-09-19 06:51] LABS: BLOOD UREA NITROGEN 14 MG/DL (7-18); CALCIUM LEVEL 8.4 MG/DL (8.8-10.2); CARBON DIOXIDE LEVEL 21 MEQ/L (21-32); CHLORIDE LEVEL 114 MEQ/L (98-107); CREATININE FOR GFR 1.06 MG/DL (0.70-1.30); GLOMERULAR FILTRATION RATE > 60.0 (>49); GLUCOSE, FASTING 107 MG/DL (70-100); NT-PRO BNP 1161 PG/ML (<125); SODIUM LEVEL 144 MEQ/L (136-145)
[2021-09-19] MEDS: VANCOMYCIN HCL 1,000 MG, VIAL MATE ADAPTER 1 EACH in NS 250 ML IV SCH ×2 (07:18→17:23)
[2021-09-19] MEDS: LACTOBACILLUS ACIDOPHILUS CAP (BACID) PO SCH ×2 (09:46→17:23)
[2021-09-19] MEDS: POTASSIUM CHLORIDE 10MEQ SR TABLET PO SCH ×2 (09:47→22:07)
[2021-09-19] MEDS: OMEPRAZOLE 20MG CAP PO SCH ×2 (09:47→22:08)
[2021-09-19] MEDS: APIXABAN 5 MG TAB (ELIQUIS) PO SCH ×2 (09:47→22:07)
[2021-09-19] MEDS: PRAMIPEXOLE 1 MG TAB PO SCH ×2 (09:47→22:07)
[2021-09-19] MEDS ORDERED: ISOVUE-370 76% 100ML VIAL As Ordered ONE (10:18)
[2021-09-19 14:00] VITALS: BP 134/73
[2021-09-19] MEDS: TORSEMIDE 20 MG TAB PO SCH (17:21)
[2021-09-19] MEDS: SPIRONOLACTONE 25 MG TAB PO SCH (17:24)
[2021-09-19 22:00] VITALS: BP 129/72
[2021-09-19] MEDS: TOPIRAMATE (TopAMAX) 25 MG TAB PO SCH (22:07)
[2021-09-20] MEDS: VANCOMYCIN HCL 1,000 MG, VIAL MATE ADAPTER 1 EACH in NS 250 ML IV SCH ×2 (00:49→08:44)
[2021-09-20 01:00] VITALS: BP 98/50
[2021-09-20 03:12] VITALS: BP 121/65
[2021-09-20 06:00] VITALS: BP_SYST 121; BP_SYST 123; BP_DIAS 66; BP_DIAS 67
[2021-09-20] MEDS: PIPERACILLIN/TAZOBACTAM SOD 3.375 GM in D5W MINI-BAG PLUS 50 ML IV SCH (06:03)
[2021-09-20 06:32] LABS: HEMATOCRIT 35.6 % (42.0-52.0); MEAN CORPUSCULAR HEMOGLOBIN 25.7 pg (27.0-33.0); MEAN CORPUSCULAR HGB CONC 30.9 g/dl (32.0-36.5); MEAN CORPUSCULAR VOLUME 83.2 fl (80.0-96.0); PLATELET COUNT, AUTOMATED 254 10^3/uL (150-450); RED BLOOD COUNT 4.28 10^6/uL (4.30-6.10); WHITE BLOOD COUNT 6.5 10^3/uL (4.0-10.0)
[2021-09-20 06:57] LABS: BLOOD UREA NITROGEN 13 MG/DL (7-18); CALCIUM LEVEL 8.5 MG/DL (8.8-10.2); CARBON DIOXIDE LEVEL 28 MEQ/L (21-32); CHLORIDE LEVEL 109 MEQ/L (98-107); CREATININE FOR GFR 1.09 MG/DL (0.70-1.30); GLOMERULAR FILTRATION RATE > 60.0 (>49); GLUCOSE, FASTING 109 MG/DL (70-100); POTASSIUM SERUM 3.8 MEQ/L (3.5-5.1); SODIUM LEVEL 141 MEQ/L (136-145)
[2021-09-20] MEDS: POTASSIUM CHLORIDE 10MEQ SR TABLET PO SCH (08:42)
[2021-09-20] MEDS: TORSEMIDE 20 MG TAB PO SCH (08:42)
[2021-09-20] MEDS: LACTOBACILLUS ACIDOPHILUS CAP (BACID) PO SCH (08:42)
[2021-09-20] MEDS: SPIRONOLACTONE 25 MG TAB PO SCH (08:42)
[2021-09-20] MEDS: OMEPRAZOLE 20MG CAP PO SCH (08:42)
[2021-09-20] MEDS: PRAMIPEXOLE 1 MG TAB PO SCH (08:42)
[2021-09-20] MEDS: APIXABAN 5 MG TAB (ELIQUIS) PO SCH (08:42)
[2021-09-20] MEDS ORDERED: RISATAB3 PO (09:05)
[2021-09-20] MEDS ORDERED: AMOX875T2 PO (09:05)
== END 2021-09-20 11:24 | disposition home or self-care (01) | DRG 383 ==
LOC: M ED 11:23 → EDBD 11:23 → M ED INP 16:01 → ENRESERV 09-17 14:25 → M MSPAV 09-17 15:36
PROVIDERS: ADMIT Internal Medicine; ATTEND Internal Medicine
DX: L03.116 Cellulitis of left lower limb (principal); Z68.41 Body mass index [BMI] 40.0-44.9, adult; I48.0 Paroxysmal atrial fibrillation; K22.70 Barrett's esophagus without dysplasia; G25.81 Restless legs syndrome; E66.01 Morbid (severe) obesity due to excess calories; I87.2 Venous insufficiency (chronic) (peripheral); E78.5 Hyperlipidemia, unspecified; G47.33 Obstructive sleep apnea (adult) (pediatric); I89.0 Lymphedema, not elsewhere classified; M48.07 Spinal stenosis, lumbosacral region; K21.9 Gastro-esophageal reflux disease without esophagitis; K44.9 Diaphragmatic hernia without obstruction or gangrene; Z79.899 Other long term (current) drug therapy; F41.0 Panic disorder [episodic paroxysmal anxiety]; L03.115 Cellulitis of right lower limb

== ENCOUNTER → 2021-09-30 | Outpatient (REF) | payer BC ==
[~2021-09-30] MED LIST changes: +AMOX875T2 PO; +DILT60CASR PO; +ELIQ5TAB PO; +MIRA1TAB3 PO; +OMEP1CAP73 PO; +POTA10CA32; +POTA10CA32 PO; +RISATAB3 PO; +VITA-172 PO
== END ==
LOC: M SFHCPLAZ 17:26
PROVIDERS: ATTEND Physician Assistant
DX: Z11.52 Encounter for screening for COVID-19 (principal); R50.9 Fever, unspecified

== ENCOUNTER → 2021-10-10 | Outpatient (CLI) | payer BC ==
[~2021-10-10] MED LIST changes: +DOXY100T PO
[2021-10-10 14:30] LABS: BASO % 0.4 % (0.0-1.0); EOS # 0.2 10^3/uL (0.0-0.5); EOS % 2.5 % (0.0-3.0); HEMATOCRIT 38.8 % (42.0-52.0); HEMOGLOBIN 11.8 g/dl (13.5-17.5); LYMPH # 1.6 10^3/uL (1.5-5.0); LYMPH % 24.1 % (24.0-44.0); MEAN CORPUSCULAR HEMOGLOBIN 25.9 pg (27.0-33.0); MEAN CORPUSCULAR HGB CONC 30.4 g/dl (32.0-36.5); MEAN CORPUSCULAR VOLUME 85.3 fl (80.0-96.0); MONO # 0.8 10^3/uL (0.0-0.8); MONO % 12.3 % (2.0-8.0); NEUTROPHILS # 4.1 10^3/uL (1.5-8.5); PLATELET COUNT, AUTOMATED 313 10^3/uL (150-450); RED BLOOD COUNT 4.55 10^6/uL (4.30-6.10); WHITE BLOOD COUNT 6.8 10^3/uL (4.0-10.0)
[2021-10-10 17:31] LABS: ALBUMIN 3.6 GM/DL (3.2-5.2); BILIRUBIN,TOTAL 0.2 MG/DL (0.2-1.0); C REACTIVE PROTEIN QUANTITATIV 0.72 MG/DL (0.00-0.30); CALCIUM LEVEL 8.9 MG/DL (8.8-10.2); CREATININE FOR GFR 1.36 MG/DL (0.70-1.30); GLOMERULAR FILTRATION RATE 56.3 (>49); POTASSIUM SERUM 4.2 MEQ/L (3.5-5.1); TOTAL PROTEIN 7.7 GM/DL (6.4-8.2)
== END ==
LOC: M PLALAB 10:23
PROVIDERS: ATTEND Physician Assistant
DX: E87.6 Hypokalemia (principal); L03.116 Cellulitis of left lower limb

== ENCOUNTER → 2021-10-14 | Outpatient (CLI) | payer BC | LOC: M PLALAB 10:41 | PROVIDERS: ATTEND Surgery | DX: Z86.39 Personal history of other endocrine, nutritional and metabolic disease (principal) ==

== ENCOUNTER → 2021-10-14 | Outpatient (CLI) | payer BC ==
[2021-10-14 14:38] LABS: BASO % 0.5 % (0.0-1.0); EOS # 0.1 10^3/uL (0.0-0.5); EOS % 2.1 % (0.0-3.0); HEMATOCRIT 40.7 % (42.0-52.0); HEMOGLOBIN 12.2 g/dl (13.5-17.5); LYMPH # 1.6 10^3/uL (1.5-5.0); LYMPH % 24.2 % (24.0-44.0); MEAN CORPUSCULAR HEMOGLOBIN 25.5 pg (27.0-33.0); MONO # 0.7 10^3/uL (0.0-0.8); MONO % 11.2 % (2.0-8.0); NEUTROPHILS % 61.5 % (36.0-66.0); PLATELET COUNT, AUTOMATED 272 10^3/uL (150-450); RED BLOOD COUNT 4.79 10^6/uL (4.30-6.10); WHITE BLOOD COUNT 6.5 10^3/uL (4.0-10.0)
[2021-10-14 14:48] LABS: CREATININE FOR GFR 1.36 MG/DL (0.70-1.30)
[2021-10-14 14:49] LABS: C REACTIVE PROTEIN QUANTITATIV 0.65 MG/DL (0.00-0.30); CALCIUM LEVEL 9.2 MG/DL (8.8-10.2); GLOMERULAR FILTRATION RATE 56.3 (>49); POTASSIUM SERUM 4.1 MEQ/L (3.5-5.1)
== END ==
LOC: M PLALAB 10:44
PROVIDERS: ATTEND Physician Assistant
DX: L03.116 Cellulitis of left lower limb (principal)

== ENCOUNTER → 2021-10-21 | Outpatient (CLI) | payer BC ==
[2021-10-21 14:02] LABS: CALCIUM LEVEL 9.2 MG/DL (8.8-10.2); CREATININE FOR GFR 1.36 MG/DL (0.70-1.30); GLOMERULAR FILTRATION RATE 56.3 (>49); POTASSIUM SERUM 3.8 MEQ/L (3.5-5.1)
== END ==
LOC: M PLALAB 10:10
PROVIDERS: ATTEND Physician Assistant
DX: R60.0 Localized edema (principal)

== ENCOUNTER → 2021-10-29 | Outpatient (CLI) | payer BC ==
[2021-10-29 16:18] LABS: BLOOD UREA NITROGEN 22 MG/DL (7-18); CARBON DIOXIDE LEVEL 31 MEQ/L (21-32); CHLORIDE LEVEL 102 MEQ/L (98-107); CREATININE FOR GFR 1.25 MG/DL (0.70-1.30); GLOMERULAR FILTRATION RATE > 60.0 (>49); GLUCOSE, FASTING 102 MG/DL (70-100); POTASSIUM SERUM 3.3 MEQ/L (3.5-5.1); SODIUM LEVEL 138 MEQ/L (136-145)
== END ==
LOC: M PLALAB 12:14
PROVIDERS: ATTEND Physician Assistant
DX: R60.0 Localized edema (principal)

== ENCOUNTER → 2021-10-29 | Outpatient (CLI) | payer BC ==
[2021-10-29 16:17] LABS: BLOOD UREA NITROGEN 22 MG/DL (7-18); CARBON DIOXIDE LEVEL 32 MEQ/L (21-32); CHLORIDE LEVEL 101 MEQ/L (98-107); CREATININE FOR GFR 1.27 MG/DL (0.70-1.30); GLOMERULAR FILTRATION RATE > 60.0 (>49); GLUCOSE, FASTING 101 MG/DL (70-100); POTASSIUM SERUM 3.4 MEQ/L (3.5-5.1); SODIUM LEVEL 138 MEQ/L (136-145)
== END ==
LOC: M PLALAB 12:16
PROVIDERS: ATTEND Internal Medicine Cardiovascular Disease
DX: I48.0 Paroxysmal atrial fibrillation (principal); Z79.01 Long term (current) use of anticoagulants

== ENCOUNTER → 2021-11-10 | Outpatient (REF) | payer BC ==
[2021-11-10 17:10] LABS: BLOOD UREA NITROGEN 31 MG/DL (7-18); CALCIUM LEVEL 8.7 MG/DL (8.8-10.2); CARBON DIOXIDE LEVEL 31 MEQ/L (21-32); CHLORIDE LEVEL 106 MEQ/L (98-107); CREATININE FOR GFR 1.25 MG/DL (0.70-1.30); GLOMERULAR FILTRATION RATE > 60.0 (>49); GLUCOSE, FASTING 99 MG/DL (70-100); NT-PRO BNP 57 PG/ML (<125); POTASSIUM SERUM 3.5 MEQ/L (3.5-5.1); SODIUM LEVEL 141 MEQ/L (136-145)
== END ==
LOC: M SFHCADAM 14:11
PROVIDERS: ATTEND Physician Assistant
DX: R60.0 Localized edema (principal)

== ENCOUNTER → 2021-11-20 | Outpatient (CLI) | payer BC ==
[2021-11-20 13:49] LABS: BLOOD UREA NITROGEN 23 MG/DL (7-18); CALCIUM LEVEL 9.1 MG/DL (8.8-10.2); CARBON DIOXIDE LEVEL 32 MEQ/L (21-32); CHLORIDE LEVEL 104 MEQ/L (98-107); CREATININE FOR GFR 1.26 MG/DL (0.70-1.30); GLOMERULAR FILTRATION RATE > 60.0 (>49); GLUCOSE, FASTING 102 MG/DL (70-100); POTASSIUM SERUM 4.2 MEQ/L (3.5-5.1); SODIUM LEVEL 139 MEQ/L (136-145)
== END ==
LOC: M PLALAB 11:24
PROVIDERS: ATTEND Internal Medicine Cardiovascular Disease
DX: I48.0 Paroxysmal atrial fibrillation (principal)

== ENCOUNTER → 2022-01-27 | Outpatient (CLI) | payer BC ==
[~2022-01-27] MED LIST changes: +AMOX875T2
[2022-01-27 15:52] LABS: BASO % 0.5 % (0.0-1.0); EOS # 0.1 10^3/uL (0.0-0.5); EOS % 1.6 % (0.0-3.0); HEMOGLOBIN 12.4 g/dl (13.5-17.5); LYMPH # 1.6 10^3/uL (1.5-5.0); LYMPH % 25.2 % (24.0-44.0); MEAN CORPUSCULAR HEMOGLOBIN 26.2 pg (27.0-33.0); MEAN CORPUSCULAR HGB CONC 30.2 g/dl (32.0-36.5); MEAN CORPUSCULAR VOLUME 86.7 fl (80.0-96.0); MONO # 0.7 10^3/uL (0.0-0.8); NEUTROPHILS # 3.8 10^3/uL (1.5-8.5); NEUTROPHILS % 61.2 % (36.0-66.0); PLATELET COUNT, AUTOMATED 262 10^3/uL (150-450); RED BLOOD COUNT 4.73 10^6/uL (4.30-6.10); WHITE BLOOD COUNT 6.2 10^3/uL (4.0-10.0)
[2022-01-27 16:18] LABS: ERYTHROCYTE SEDIMENTATION RATE 12 mm/hr (0-20)
== END ==
LOC: M PLALAB 12:20
PROVIDERS: ATTEND Physician Assistant
DX: L03.116 Cellulitis of left lower limb (principal)

== ENCOUNTER 2022-02-02 09:40 | Emergency (ER) | payer BC ==
[~2022-02-02] VITALS: Ht 180.3 cm; Wt 163.0 kg
[~2022-02-02 09:40] MED LIST changes: -AMOX875T2
[2022-02-02] MEDS ORDERED: AMOX875T2 (09:51)
[2022-02-02 12:49] LABS: BASO % 0.3 % (0.0-1.0); EOS # 0.1 10^3/uL (0.0-0.5); EOS % 0.9 % (0.0-3.0); HEMATOCRIT 42.5 % (42.0-52.0); HEMOGLOBIN 13.5 g/dl (13.5-17.5); LYMPH # 1.3 10^3/uL (1.5-5.0); LYMPH % 17.4 % (24.0-44.0); MEAN CORPUSCULAR HEMOGLOBIN 26.9 pg (27.0-33.0); MEAN CORPUSCULAR HGB CONC 31.8 g/dl (32.0-36.5); MEAN CORPUSCULAR VOLUME 84.7 fl (80.0-96.0); MONO # 0.8 10^3/uL (0.0-0.8); MONO % 10.2 % (2.0-8.0); NEUTROPHILS # 5.3 10^3/uL (1.5-8.5); NEUTROPHILS % 70.7 % (36.0-66.0); PLATELET COUNT, AUTOMATED 241 10^3/uL (150-450); RED BLOOD COUNT 5.02 10^6/uL (4.30-6.10); WHITE BLOOD COUNT 7.4 10^3/uL (4.0-10.0)
[2022-02-02 13:50] LABS: ERYTHROCYTE SEDIMENTATION RATE 18 mm/hr (0-20)
[2022-02-02 15:29] VITALS: BP 140/71
== END 2022-02-02 15:40 | disposition home or self-care (01) ==
LOC: M ED 09:40
DX: I87.312 Chronic venous hypertension (idiopathic) with ulcer of left lower extremity (principal); I89.0 Lymphedema, not elsewhere classified; I87.2 Venous insufficiency (chronic) (peripheral); Z79.01 Long term (current) use of anticoagulants; Z79.899 Other long term (current) drug therapy; Z79.83 Long term (current) use of bisphosphonates

== ENCOUNTER → 2022-02-05 | Outpatient (REF) | payer BC ==
[~2022-02-05] MED LIST changes: +AMOX875T2
== END ==
LOC: M LAB REF 09:33
PROVIDERS: ATTEND Physician Assistant
DX: R05.9 Cough, unspecified (principal); R50.9 Fever, unspecified; R53.81 Other malaise

== ENCOUNTER 2022-02-17 13:22 | Outpatient (RCR) | payer BC | END 2022-02-18 | LOC: M PT 13:22 | PROVIDERS: ATTEND Surgery | DX: I89.0 Lymphedema, not elsewhere classified (principal) ==

== ENCOUNTER 2022-03-12 14:14 | Outpatient (RCR) | payer BC ==
[~2022-03-12 14:14] MED LIST changes: -POTA10CA32; -POTA10CA32 PO; +POTA10CA33; +POTA10CA33 PO
== END 2022-03-21 ==
LOC: M PT 14:14
PROVIDERS: ATTEND Surgery
DX: I89.0 Lymphedema, not elsewhere classified (principal)

== ENCOUNTER → 2022-03-20 | Outpatient (CLI) | payer BC | LOC: M RAD 09:46 | PROVIDERS: ATTEND Nurse Practitioner Family | DX: M79.2 Neuralgia and neuritis, unspecified (principal) ==

== ENCOUNTER → 2022-03-20 | Outpatient (CLI) | payer BC | LOC: M PAIN 08:00 | PROVIDERS: ATTEND Nurse Practitioner Family | DX: M79.2 Neuralgia and neuritis, unspecified (principal); R73.03 Prediabetes; G25.81 Restless legs syndrome; G47.33 Obstructive sleep apnea (adult) (pediatric); F17.290 Nicotine dependence, other tobacco product, uncomplicated; Z86.59 Personal history of other mental and behavioral disorders; Z91.013 Allergy to seafood; E66.01 Morbid (severe) obesity due to excess calories; Z68.42 Body mass index [BMI] 45.0-49.9, adult; Z79.01 Long term (current) use of anticoagulants; Z79.899 Other long term (current) drug therapy ==

== ENCOUNTER → 2022-03-31 | Outpatient (REF) | payer BC ==
[2022-03-31 14:02] LABS: HEMATOCRIT 43.6 % (42.0-52.0); HEMOGLOBIN 13.2 g/dl (13.5-17.5); MEAN CORPUSCULAR HEMOGLOBIN 26.3 pg (27.0-33.0); MEAN CORPUSCULAR HGB CONC 30.3 g/dl (32.0-36.5); PLATELET COUNT, AUTOMATED 227 10^3/uL (150-450); RED BLOOD COUNT 5.01 10^6/uL (4.30-6.10); WHITE BLOOD COUNT 8.4 10^3/uL (4.0-10.0)
[2022-03-31 14:18] LABS: HEMOGLOBIN A1c 5.5 % (4.0-6.0)
[2022-03-31 14:35] LABS: FERRITIN 33.5 NG/ML (10.5-307.3); THYROID STIMULATING HORMONE 0.788 uIU/ML (0.55-4.78)
[2022-03-31 14:37] LABS: FREE T4 1.29 NG/DL (0.89-1.76)
[2022-03-31 14:39] LABS: IRON (FE) 43 UG/DL (65-175); PERCENT SATURATION 11.7 % (19.7-50.0); TOTAL IRON BINDING CAPACITY 368 UG/DL (250-425)
[2022-03-31 14:48] LABS: ALBUMIN 3.9 G/DL (3.2-5.2); ALKALINE PHOSPHATASE 69 U/L (46-116); ALT/SGPT 31 U/L (7.0-40); AST/SGOT 19 U/L (<34); BILIRUBIN,TOTAL 0.8 MG/DL (0.3-1.2); BLOOD UREA NITROGEN 27 MG/DL (9-23); CALCIUM LEVEL 9.1 MG/DL (8.3-10.6); CARBON DIOXIDE LEVEL 33 MMOL/L (20-31); CHLORIDE LEVEL 100 MMOL/L (98-107); CHOLESTEROL LEVEL 178 MG/DL (<200); CHOLESTEROL RISK RATIO 2.88 (<5); CREATININE FOR GFR 1.19 MG/DL (0.70-1.30); GLOMERULAR FILTRATION RATE > 60.0 (>49); GLUCOSE, FASTING 102 MG/DL (74-106); HDL CHOLESTEROL 61.7 MG/DL (>40); LDL CHOLESTEROL 103.9 MG/DL (<100); NON-HDL-C 116 MG/DL; SODIUM LEVEL 142 MMOL/L (136-145); TOTAL PROTEIN 6.8 G/DL (5.7-8.2); TRIGLYCERIDES LEVEL 62 MG/DL (<150)
== END ==
LOC: M SFHCADAM 10:14
PROVIDERS: ATTEND Family Medicine
DX: G47.10 Hypersomnia, unspecified (principal); D50.0 Iron deficiency anemia secondary to blood loss (chronic); E74.9 Disorder of carbohydrate metabolism, unspecified; E78.2 Mixed hyperlipidemia; I48.0 Paroxysmal atrial fibrillation; Z68.42 Body mass index [BMI] 45.0-49.9, adult

== ENCOUNTER → 2022-04-07 | Outpatient (CLI) | payer BC | LOC: M PAIN 14:45 | PROVIDERS: ATTEND Nurse Practitioner Family | DX: M79.2 Neuralgia and neuritis, unspecified (principal); G89.29 Other chronic pain; R73.03 Prediabetes; G25.81 Restless legs syndrome; G47.33 Obstructive sleep apnea (adult) (pediatric); D50.9 Iron deficiency anemia, unspecified; F17.290 Nicotine dependence, other tobacco product, uncomplicated; Z86.59 Personal history of other mental and behavioral disorders; Z91.013 Allergy to seafood; E66.01 Morbid (severe) obesity due to excess calories; Z68.42 Body mass index [BMI] 45.0-49.9, adult; Z79.899 Other long term (current) drug therapy ==

== ENCOUNTER 2022-04-13 13:30 | Outpatient (RCR) | payer BC | END 2022-04-21 | LOC: M PT 13:30 | PROVIDERS: ATTEND Surgery | DX: I89.0 Lymphedema, not elsewhere classified (principal) ==

== ENCOUNTER → 2022-04-21 | Outpatient (CLI) | payer BC | LOC: M RAD 10:36 | PROVIDERS: ATTEND Physician Assistant | DX: L97.812 Non-pressure chronic ulcer of other part of right lower leg with fat layer exposed (principal) ==

== ENCOUNTER → 2022-05-22 | Outpatient (CLI) | payer BC ==
[2022-05-25 19:07] LABS: UNITSIGA FOR GLIADIN IGA 6 units (0-19); UNITSIGG FOR GLIADIN IGG 20 units (0-19)
== END ==
LOC: M PLALAB 12:42
PROVIDERS: ATTEND Family Medicine
DX: G62.9 Polyneuropathy, unspecified (principal)

== ENCOUNTER → 2022-05-24 | Outpatient (CLI) | payer BC | LOC: M LAB 08:27 | PROVIDERS: ATTEND Internal Medicine Gastroenterology | DX: K76.0 Fatty (change of) liver, not elsewhere classified (principal) ==

== ENCOUNTER → 2022-06-14 | Outpatient (CLI) | payer BC ==
[2022-06-16 20:09] LABS: UNITSIGA FOR GLIADIN IGA 5 units (0-19); UNITSIGG FOR GLIADIN IGG 16 units (0-19)
== END ==
LOC: M LAB 08:26
PROVIDERS: ATTEND Family Medicine
DX: R76.8 Other specified abnormal immunological findings in serum (principal)

== ENCOUNTER → 2022-06-18 | Outpatient (CLI) | payer BC | LOC: M PAIN 15:45 | PROVIDERS: ATTEND Nurse Practitioner Family | DX: M79.2 Neuralgia and neuritis, unspecified (principal); G89.29 Other chronic pain; R73.03 Prediabetes; G25.81 Restless legs syndrome; G47.33 Obstructive sleep apnea (adult) (pediatric); D50.9 Iron deficiency anemia, unspecified; F17.290 Nicotine dependence, other tobacco product, uncomplicated; Z86.59 Personal history of other mental and behavioral disorders; Z91.013 Allergy to seafood; E66.01 Morbid (severe) obesity due to excess calories; Z68.42 Body mass index [BMI] 45.0-49.9, adult; Z79.82 Long term (current) use of aspirin; Z79.899 Other long term (current) drug therapy ==

== ENCOUNTER → 2022-07-04 | Outpatient (CLI) | payer BC ==
[2022-07-04 09:19] LABS: HEMATOCRIT 43.4 % (42.0-52.0); HEMOGLOBIN 13.4 g/dl (13.5-17.5); MEAN CORPUSCULAR HEMOGLOBIN 26.4 pg (27.0-33.0); MEAN CORPUSCULAR HGB CONC 30.9 g/dl (32.0-36.5); MEAN CORPUSCULAR VOLUME 85.6 fl (80.0-96.0); PLATELET COUNT, AUTOMATED 234 10^3/uL (150-450); RED BLOOD COUNT 5.07 10^6/uL (4.30-6.10); WHITE BLOOD COUNT 8.3 10^3/uL (4.0-10.0)
[2022-07-04 09:41] LABS: ALBUMIN 3.7 G/DL (3.2-5.2); ALKALINE PHOSPHATASE 86 U/L (46-116); ALT/SGPT 36 U/L (7.0-40); AST/SGOT 18 U/L (<34); BILIRUBIN,TOTAL 0.4 MG/DL (0.3-1.2); BLOOD UREA NITROGEN 30 MG/DL (9-23); CALCIUM LEVEL 8.9 MG/DL (8.3-10.6); CARBON DIOXIDE LEVEL 33 MMOL/L (20-31); CHLORIDE LEVEL 101 MMOL/L (98-107); CREATININE FOR GFR 1.22 MG/DL (0.70-1.30); GLOMERULAR FILTRATION RATE > 60.0 (>49); GLUCOSE, FASTING 111 MG/DL (74-106); IRON (FE) 41 UG/DL (65-175); POTASSIUM SERUM 3.6 MMOL/L (3.5-5.1); SODIUM LEVEL 141 MMOL/L (136-145); TOTAL IRON BINDING CAPACITY 342 UG/DL (250-425); TOTAL PROTEIN 7.3 G/DL (5.7-8.2)
[2022-07-04 09:43] LABS: FERRITIN 61.8 NG/ML (10.5-307.3)
[2022-07-04 09:46] LABS: HEMOGLOBIN A1c 5.7 % (4.0-6.0)
== END ==
LOC: M LAB 08:34
PROVIDERS: ATTEND Family Medicine
DX: I50.810 Right heart failure, unspecified (principal); E74.9 Disorder of carbohydrate metabolism, unspecified; D50.0 Iron deficiency anemia secondary to blood loss (chronic)

== ENCOUNTER → 2022-07-14 | Outpatient (CLI) | payer BC ==
[2022-07-14 14:16] LABS: HEMATOCRIT 45.1 % (42.0-52.0); HEMOGLOBIN 13.7 g/dl (13.5-17.5); MEAN CORPUSCULAR HEMOGLOBIN 26.2 pg (27.0-33.0); MEAN CORPUSCULAR HGB CONC 30.4 g/dl (32.0-36.5); MEAN CORPUSCULAR VOLUME 86.2 fl (80.0-96.0); PLATELET COUNT, AUTOMATED 258 10^3/uL (150-450); RED BLOOD COUNT 5.23 10^6/uL (4.30-6.10); WHITE BLOOD COUNT 7.2 10^3/uL (4.0-10.0)
[2022-07-14 14:27] LABS: INR 0.91; PROTHROMBIN TIME 12.5 SECONDS (12.5-14.5)
[2022-07-14 14:28] LABS: PARTIAL THROMBOPLASTIN TIME 32.3 SECONDS (24.8-34.2)
== END ==
LOC: M PLALAB 11:31
PROVIDERS: ATTEND Family Medicine
DX: R23.3 Spontaneous ecchymoses (principal)

== ENCOUNTER → 2022-08-03 | Outpatient (CLI) | payer BC | LOC: M PAIN 15:00 | PROVIDERS: ATTEND Nurse Practitioner Family | DX: M79.2 Neuralgia and neuritis, unspecified (principal); G89.29 Other chronic pain; G25.81 Restless legs syndrome; G47.33 Obstructive sleep apnea (adult) (pediatric); D50.9 Iron deficiency anemia, unspecified; F17.290 Nicotine dependence, other tobacco product, uncomplicated; Z86.59 Personal history of other mental and behavioral disorders; Z88.8 Allergy status to other drugs, medicaments and biological substances; Z91.013 Allergy to seafood; E66.01 Morbid (severe) obesity due to excess calories; Z68.42 Body mass index [BMI] 45.0-49.9, adult; Z79.82 Long term (current) use of aspirin; Z79.899 Other long term (current) drug therapy ==

== ENCOUNTER → 2022-10-16 | Outpatient (CLI) | payer BC ==
[~2022-10-16] MED LIST changes: -POTA10CA33; -POTA10CA33 PO; +POTA10CA60; +POTA10CA60 PO; -ROPI0.5T3 PO; +ROPI0.5T33 PO
== END ==
LOC: M PAIN 14:30
PROVIDERS: ATTEND Anesthesiology
DX: G62.9 Polyneuropathy, unspecified (principal); G57.93 Unspecified mononeuropathy of bilateral lower limbs; K44.9 Diaphragmatic hernia without obstruction or gangrene; E78.5 Hyperlipidemia, unspecified; R73.03 Prediabetes; N52.9 Male erectile dysfunction, unspecified; E53.8 Deficiency of other specified B group vitamins; G25.81 Restless legs syndrome; G47.33 Obstructive sleep apnea (adult) (pediatric); I83.90 Asymptomatic varicose veins of unspecified lower extremity; R60.0 Localized edema; I48.0 Paroxysmal atrial fibrillation; K22.70 Barrett's esophagus without dysplasia; F41.0 Panic disorder [episodic paroxysmal anxiety]; K76.0 Fatty (change of) liver, not elsewhere classified; E66.01 Morbid (severe) obesity due to excess calories; Z68.42 Body mass index [BMI] 45.0-49.9, adult; F17.290 Nicotine dependence, other tobacco product, uncomplicated; Z79.82 Long term (current) use of aspirin; Z79.899 Other long term (current) drug therapy; Z88.8 Allergy status to other drugs, medicaments and biological substances; Z91.013 Allergy to seafood

== ENCOUNTER → 2022-10-27 | Outpatient (CLI) | payer BC ==
[2022-10-27 13:04] LABS: HEMATOCRIT 41.2 % (42.0-52.0); HEMOGLOBIN 12.6 g/dl (13.5-17.5); MEAN CORPUSCULAR HEMOGLOBIN 25.3 pg (27.0-33.0); MEAN CORPUSCULAR HGB CONC 30.6 g/dl (32.0-36.5); MEAN CORPUSCULAR VOLUME 82.6 fl (80.0-96.0); PLATELET COUNT, AUTOMATED 263 10^3/uL (150-450); RED BLOOD COUNT 4.99 10^6/uL (4.30-6.10); WHITE BLOOD COUNT 6.5 10^3/uL (4.0-10.0)
[2022-10-27 13:31] LABS: COLLAGEN EPINEPHRINE 118 SECONDS (74-162)
[2022-10-27 13:43] LABS: INR 0.97; PROTHROMBIN TIME 13.1 SECONDS (12.5-14.5)
[2022-10-27 13:44] LABS: PARTIAL THROMBOPLASTIN TIME 33.1 SECONDS (24.8-34.2)
[2022-10-29 06:11] LABS: F8 ACTIVITY FOR F8 PANEL 89 % (56-140); F8 ACTIVITY vWB FOR F8 PANEL 109 % (50-200); F8 ANTIGEN FOR F8 PANEL 155 % (50-200)
== END ==
LOC: M PLALAB 10:33
PROVIDERS: ATTEND Internal Medicine Hematology
DX: R23.3 Spontaneous ecchymoses (principal)

== ENCOUNTER → 2022-11-08 | Outpatient (CLI) | payer BC ==
[2022-11-08 09:35] LABS: BASO % 0.3 % (0.0-1.0); EOS # 0.1 10^3/uL (0.0-0.5); EOS % 1.2 % (0.0-3.0); HEMATOCRIT 40.3 % (42.0-52.0); HEMOGLOBIN 12.3 g/dl (13.5-17.5); LYMPH # 1.3 10^3/uL (1.5-5.0); LYMPH % 14.6 % (24.0-44.0); MEAN CORPUSCULAR HEMOGLOBIN 25.4 pg (27.0-33.0); MEAN CORPUSCULAR HGB CONC 30.5 g/dl (32.0-36.5); MEAN CORPUSCULAR VOLUME 83.1 fl (80.0-96.0); MONO # 0.8 10^3/uL (0.0-0.8); MONO % 8.8 % (2.0-8.0); NEUTROPHILS # 6.8 10^3/uL (1.5-8.5); NEUTROPHILS % 74.6 % (36.0-66.0); PLATELET COUNT, AUTOMATED 248 10^3/uL (150-450); RED BLOOD COUNT 4.85 10^6/uL (4.30-6.10); WHITE BLOOD COUNT 9.2 10^3/uL (4.0-10.0)
[2022-11-08 10:05] LABS: ALBUMIN 3.3 G/DL (3.2-5.2); ALKALINE PHOSPHATASE 80 U/L (46-116); ALT/SGPT 26 U/L (7.0-40); AST/SGOT 17 U/L (<34); BILIRUBIN,TOTAL 0.4 MG/DL (0.3-1.2); BLOOD UREA NITROGEN 15 MG/DL (9-23); CALCIUM LEVEL 8.5 MG/DL (8.3-10.6); CARBON DIOXIDE LEVEL 26 MMOL/L (20-31); CHLORIDE LEVEL 109 MMOL/L (98-107); CREATININE FOR GFR 0.97 MG/DL (0.70-1.30); GLOMERULAR FILTRATION RATE > 60.0 (>49); GLUCOSE, FASTING 109 MG/DL (74-106); POTASSIUM SERUM 4.5 MMOL/L (3.5-5.1); SODIUM LEVEL 142 MMOL/L (136-145); TOTAL PROTEIN 6.7 G/DL (5.7-8.2)
== END ==
LOC: M LAB 08:47
PROVIDERS: ATTEND Surgery
DX: Z01.812 Encounter for preprocedural laboratory examination (principal); Z86.39 Personal history of other endocrine, nutritional and metabolic disease

== ENCOUNTER → 2022-11-10 | Outpatient (REF) | payer BC | LOC: M SFHCADAM 14:52 | PROVIDERS: ATTEND Physician Assistant Medical | DX: L03.116 Cellulitis of left lower limb (principal) ==

== ENCOUNTER → 2022-11-18 | Outpatient (CLI) | payer BC ==
[~2022-11-18] MED LIST changes: -PRAM1TAB75 PO; +PRAM2.252 PO
== END ==
LOC: M PAIN 09:30
PROVIDERS: ATTEND Anesthesiology
DX: G62.9 Polyneuropathy, unspecified (principal); M79.671 Pain in right foot; M79.672 Pain in left foot; G89.29 Other chronic pain; G47.33 Obstructive sleep apnea (adult) (pediatric); R73.03 Prediabetes; D50.9 Iron deficiency anemia, unspecified; F17.290 Nicotine dependence, other tobacco product, uncomplicated; Z86.59 Personal history of other mental and behavioral disorders; Z88.8 Allergy status to other drugs, medicaments and biological substances; Z91.013 Allergy to seafood; Z79.899 Other long term (current) drug therapy

== ENCOUNTER → 2022-12-07 | Outpatient (CLI) | payer BC | LOC: M PLAIMG 10:27 | PROVIDERS: ATTEND Anesthesiology | DX: M47.896 Other spondylosis, lumbar region (principal); M51.26 Other intervertebral disc displacement, lumbar region; G62.9 Polyneuropathy, unspecified ==

== ENCOUNTER → 2022-12-28 | Outpatient (CLI) | payer BC | LOC: M PAIN 15:00 | PROVIDERS: ATTEND Anesthesiology | DX: G62.9 Polyneuropathy, unspecified (principal); M79.604 Pain in right leg; M79.605 Pain in left leg; G89.29 Other chronic pain; R73.03 Prediabetes; F17.290 Nicotine dependence, other tobacco product, uncomplicated; Z98.84 Bariatric surgery status; Z80.42 Family history of malignant neoplasm of prostate; Z88.8 Allergy status to other drugs, medicaments and biological substances; Z91.013 Allergy to seafood; Z79.899 Other long term (current) drug therapy ==

== ENCOUNTER → 2023-01-14 | Outpatient (CLI) | payer BC, MEDICARE ==
[2023-01-14 15:58] LABS: BASO % 0.4 % (0.0-1.0); EOS # 0.1 10^3/uL (0.0-0.5); EOS % 1.5 % (0.0-3.0); HEMATOCRIT 39.3 % (42.0-52.0); HEMOGLOBIN 11.9 g/dl (13.5-17.5); LYMPH # 1.3 10^3/uL (1.5-5.0); LYMPH % 23.1 % (24.0-44.0); MEAN CORPUSCULAR HEMOGLOBIN 25.8 pg (27.0-33.0); MEAN CORPUSCULAR HGB CONC 30.3 g/dl (32.0-36.5); MEAN CORPUSCULAR VOLUME 85.2 fl (80.0-96.0); MONO # 0.6 10^3/uL (0.0-0.8); MONO % 11.1 % (2.0-8.0); NEUTROPHILS # 3.4 10^3/uL (1.5-8.5); NEUTROPHILS % 63.7 % (36.0-66.0); PLATELET COUNT, AUTOMATED 236 10^3/uL (150-450); RED BLOOD COUNT 4.61 10^6/uL (4.30-6.10); WHITE BLOOD COUNT 5.4 10^3/uL (4.0-10.0)
[2023-01-14 16:02] LABS: HEMATOCRIT 39.3 % (42.0-52.0)
[2023-01-14 16:28] LABS: IRON (FE) 34 UG/DL (65-175); PERCENT SATURATION 10.7 % (19.7-50.0); TOTAL IRON BINDING CAPACITY 317 UG/DL (250-425)
[2023-01-14 16:29] LABS: ALBUMIN 3.8 G/DL (3.2-5.2); ALKALINE PHOSPHATASE 70 U/L (46-116); ALT/SGPT 39 U/L (7.0-40); AST/SGOT 22 U/L (<34); BILIRUBIN,TOTAL 0.5 MG/DL (0.3-1.2); BLOOD UREA NITROGEN 13 MG/DL (9-23); CARBON DIOXIDE LEVEL 31 MMOL/L (20-31); CHLORIDE LEVEL 105 MMOL/L (98-107); CREATININE FOR GFR 1.24 MG/DL (0.70-1.30); GLOMERULAR FILTRATION RATE > 60.0 (>49); GLUCOSE, FASTING 94 MG/DL (74-106); MAGNESIUM LEVEL 2.4 MG/DL (1.8-2.4); PHOSPHORUS LEVEL 3.4 MG/DL (2.4-5.1); SODIUM LEVEL 143 MMOL/L (136-145); TOTAL PROTEIN 6.6 G/DL (5.7-8.2)
[2023-01-14 16:31] LABS: TOTAL 25(OH) VITAMIN D 19.7 NG/ML (20.0-100.0)
[2023-01-14 16:32] LABS: FERRITIN 77.2 NG/ML (10.5-307.3)
[2023-01-14 16:38] LABS: VITAMIN B12 LEVEL > 2000 PG/ML (211-911)
== END ==
LOC: M PLALAB 10:31
PROVIDERS: ATTEND Surgery
DX: K91.2 Postsurgical malabsorption, not elsewhere classified (principal); Z98.84 Bariatric surgery status; E55.9 Vitamin D deficiency, unspecified; Z86.39 Personal history of other endocrine, nutritional and metabolic disease

== ENCOUNTER → 2023-02-25 | Outpatient (CLI) | payer MEDICARE | LOC: M PLAIMG 12:48 | PROVIDERS: ATTEND Anesthesiology | DX: M47.812 Spondylosis without myelopathy or radiculopathy, cervical region (principal); M48.04 Spinal stenosis, thoracic region; R60.0 Localized edema ==

== ENCOUNTER → 2023-03-04 | Outpatient (CLI) | payer BC, MEDICARE | LOC: M TMPAIN 09:15 → M PAIN 09:15 | PROVIDERS: ATTEND Anesthesiology | DX: G62.9 Polyneuropathy, unspecified (principal); F17.290 Nicotine dependence, other tobacco product, uncomplicated; Z98.84 Bariatric surgery status; Z80.42 Family history of malignant neoplasm of prostate; Z88.8 Allergy status to other drugs, medicaments and biological substances; Z91.013 Allergy to seafood; Z79.899 Other long term (current) drug therapy ==

== ENCOUNTER → 2023-04-01 | Outpatient (CLI) | payer MEDICARE ==
[2023-04-01 13:42] LABS: HEMATOCRIT 45.1 % (42.0-52.0); HEMOGLOBIN 14.2 g/dl (13.5-17.5); MEAN CORPUSCULAR HEMOGLOBIN 26.3 pg (27.0-33.0); MEAN CORPUSCULAR HGB CONC 31.5 g/dl (32.0-36.5); MEAN CORPUSCULAR VOLUME 83.7 fl (80.0-96.0); PLATELET COUNT, AUTOMATED 289 10^3/uL (150-450); RED BLOOD COUNT 5.39 10^6/uL (4.30-6.10); WHITE BLOOD COUNT 7.5 10^3/uL (4.0-10.0)
[2023-04-01 14:10] LABS: CHOLESTEROL RISK RATIO 2.8 (<5); LDL CHOLESTEROL 85.6 MG/DL (<100)
[2023-04-01 14:13] LABS: FOLATE 22.23 NG/ML (>5.4)
[2023-04-01 14:38] LABS: HEMOGLOBIN A1c 5.5 % (4.0-6.0)
== END ==
LOC: M PLALAB 11:27
PROVIDERS: ATTEND Family Medicine
DX: I89.0 Lymphedema, not elsewhere classified (principal); G47.10 Hypersomnia, unspecified; I50.810 Right heart failure, unspecified; Z79.899 Other long term (current) drug therapy

== ENCOUNTER → 2023-04-06 | Outpatient (REF) | payer MEDICARE ==
[2023-04-06 18:45] LABS: BLOOD UREA NITROGEN 53 MG/DL (9-23); CALCIUM LEVEL 9.1 MG/DL (8.3-10.6); CARBON DIOXIDE LEVEL > 40.0 MMOL/L (20-31); CHLORIDE LEVEL 91 MMOL/L (98-107); CREATININE FOR GFR 1.52 MG/DL (0.70-1.30); GLOMERULAR FILTRATION RATE 49.2 (>49); GLUCOSE, FASTING 85 MG/DL (74-106); MAGNESIUM LEVEL 2.6 MG/DL (1.8-2.4); POTASSIUM SERUM 3.4 MMOL/L (3.5-5.1); SODIUM LEVEL 139 MMOL/L (136-145)
== END ==
LOC: M SFHCADAM 15:03
PROVIDERS: ATTEND Family Medicine
DX: I89.0 Lymphedema, not elsewhere classified (principal); I50.810 Right heart failure, unspecified

== ENCOUNTER → 2023-04-23 | Outpatient (REF) | payer MEDICARE ==
[2023-04-23 19:44] LABS: CREATININE FOR GFR 1.41 MG/DL (0.70-1.30); GLOMERULAR FILTRATION RATE 53.7 (>49); MAGNESIUM LEVEL 2.6 MG/DL (1.8-2.4); POTASSIUM SERUM 3.7 MMOL/L (3.5-5.1)
== END ==
LOC: M SFHCADAM 13:39
PROVIDERS: ATTEND Family Medicine
DX: G57.93 Unspecified mononeuropathy of bilateral lower limbs (principal); I89.0 Lymphedema, not elsewhere classified; Z98.84 Bariatric surgery status

== ENCOUNTER 2023-05-02 02:25 | Emergency (ER) | payer MEDICARE ==
[~2023-05-02] VITALS: Ht 180.3 cm; Wt 139.4 kg
[2023-05-02 03:19] LABS: BASO % 0.3 % (0.0-1.0); EOS # 0.1 10^3/uL (0.0-0.5); EOS % 0.9 % (0.0-3.0); HEMATOCRIT 41.8 % (42.0-52.0); HEMOGLOBIN 13.5 g/dl (13.5-17.5); LYMPH # 3.2 10^3/uL (1.5-5.0); LYMPH % 31.6 % (24.0-44.0); MEAN CORPUSCULAR HEMOGLOBIN 27.3 pg (27.0-33.0); MEAN CORPUSCULAR HGB CONC 32.3 g/dl (32.0-36.5); MEAN CORPUSCULAR VOLUME 84.6 fl (80.0-96.0); NEUTROPHILS # 5.7 10^3/uL (1.5-8.5); NEUTROPHILS % 56.9 % (36.0-66.0); PLATELET COUNT, AUTOMATED 282 10^3/uL (150-450); RED BLOOD COUNT 4.94 10^6/uL (4.30-6.10); WHITE BLOOD COUNT 10.1 10^3/uL (4.0-10.0)
[2023-05-02 03:39] LABS: CK-MB VALUE MASS < 1.0 NG/ML (<3.6)
[2023-05-02 03:41] LABS: BLOOD UREA NITROGEN 39 MG/DL (9-23); CARBON DIOXIDE LEVEL 36 MMOL/L (20-31); CHLORIDE LEVEL 98 MMOL/L (98-107); CREATININE FOR GFR 1.32 MG/DL (0.70-1.30); GLOMERULAR FILTRATION RATE 57.9 (>49); GLUCOSE, FASTING 124 MG/DL (74-106); POTASSIUM SERUM 3.5 MMOL/L (3.5-5.1); SODIUM LEVEL 140 MMOL/L (136-145)
[2023-05-02 03:43] LABS: THYROID STIMULATING HORMONE 2.189 uIU/ML (0.55-4.78)
[2023-05-02 03:51] LABS: CPK CREATINE PHOSPHOKINASE 67 U/L (46-171); MB/CK RELATIVE INDEX 1.49 (< OR =4)
[2023-05-02] MEDS: MORPHINE 2 MG/ML 1ML VIAL IV STA (05:24)
[2023-05-02] MEDS ORDERED: LIDOCAINE 2% MDV 20ML VIAL As Ordered ONE (05:51)
[2023-05-02] MEDS: LIDOCAINE 2% MDV 20ML VIAL SC ONE (06:22)
[2023-05-02] MEDS: BOOSTRIX VACCINE (TETANUS/DIPHTH/ACEL. PERTUSSIS) 0.5ML SYR IM.IMMUN ONE (06:23)
[2023-05-02 08:00] VITALS: BP 115/60; TEMP 97; O2SAT 99
== END 2023-05-02 08:00 | disposition short-term general hospital (02) ==
LOC: M ED 02:25
DX: S01.01XA Laceration without foreign body of scalp, initial encounter (principal); S12.100A Unspecified displaced fracture of second cervical vertebra, initial encounter for closed fracture; S06.2X1A Diffuse traumatic brain injury with loss of consciousness of 30 minutes or less, initial encounter; W07.XXXA Fall from chair, initial encounter; R00.1 Bradycardia, unspecified; I45.10 Unspecified right bundle-branch block; Z79.01 Long term (current) use of anticoagulants; Z79.83 Long term (current) use of bisphosphonates; Z79.2 Long term (current) use of antibiotics; Z79.899 Other long term (current) drug therapy; Z23 Encounter for immunization

== ENCOUNTER → 2023-05-05 | Outpatient (REF) | payer MEDICARE ==
[2023-05-05 20:19] LABS: CALCIUM LEVEL 8.7 MG/DL (8.3-10.6); CREATININE FOR GFR 1.7 MG/DL (0.70-1.30); GLOMERULAR FILTRATION RATE 43.3 (>49); MAGNESIUM LEVEL 2.4 MG/DL (1.8-2.4)
[2023-05-05 21:38] LABS: POTASSIUM SERUM 2.9 MMOL/L (3.5-5.1)
== END ==
LOC: M SFHCADAM 15:03
PROVIDERS: ATTEND Physician Assistant
DX: E87.6 Hypokalemia (principal)

== ENCOUNTER → 2023-05-20 | Outpatient (REF) | payer MEDICARE ==
[2023-05-20 17:30] LABS: HEMATOCRIT 41.1 % (42.0-52.0); HEMOGLOBIN 13.1 g/dl (13.5-17.5); MEAN CORPUSCULAR HEMOGLOBIN 27.5 pg (27.0-33.0); MEAN CORPUSCULAR HGB CONC 31.9 g/dl (32.0-36.5); MEAN CORPUSCULAR VOLUME 86.3 fl (80.0-96.0); PLATELET COUNT, AUTOMATED 319 10^3/uL (150-450); RED BLOOD COUNT 4.76 10^6/uL (4.30-6.10); WHITE BLOOD COUNT 10.1 10^3/uL (4.0-10.0)
[2023-05-20 18:01] LABS: BLOOD UREA NITROGEN 34 MG/DL (9-23); CALCIUM LEVEL 8.8 MG/DL (8.3-10.6); CARBON DIOXIDE LEVEL 39 MMOL/L (20-31); CHLORIDE LEVEL 97 MMOL/L (98-107); CREATININE FOR GFR 1.27 MG/DL (0.70-1.30); GLOMERULAR FILTRATION RATE > 60.0 (>49); GLUCOSE, FASTING 82 MG/DL (74-106); MAGNESIUM LEVEL 2.6 MG/DL (1.8-2.4); POTASSIUM SERUM 4.1 MMOL/L (3.5-5.1); SODIUM LEVEL 141 MMOL/L (136-145)
== END ==
LOC: M SFHCADAM 13:39
PROVIDERS: ATTEND Family Medicine
DX: I89.0 Lymphedema, not elsewhere classified (principal); I50.810 Right heart failure, unspecified; E87.6 Hypokalemia

== ENCOUNTER → 2023-05-27 | Outpatient (REF) | payer MEDICARE ==
[2023-05-27 18:50] LABS: BLOOD UREA NITROGEN 39 MG/DL (9-23); CALCIUM LEVEL 8.6 MG/DL (8.3-10.6); CARBON DIOXIDE LEVEL 36 MMOL/L (20-31); CHLORIDE LEVEL 97 MMOL/L (98-107); CREATININE FOR GFR 1.27 MG/DL (0.70-1.30); GLOMERULAR FILTRATION RATE > 60.0 (>49); GLUCOSE, FASTING 101 MG/DL (74-106); MAGNESIUM LEVEL 2.6 MG/DL (1.8-2.4); POTASSIUM SERUM 3.9 MMOL/L (3.5-5.1); SODIUM LEVEL 135 MMOL/L (136-145)
== END ==
LOC: M SFHCADAM 14:39
PROVIDERS: ATTEND Family Medicine
DX: I89.0 Lymphedema, not elsewhere classified (principal); E87.6 Hypokalemia

== ENCOUNTER → 2023-08-07 | Outpatient (CLI) | payer MEDICARE ==
[~2023-08-07] MED LIST changes: -POTA10CA60; -POTA10CA60 PO; +POTA10CA70; +POTA10CA70 PO
[2023-08-07 09:45] LABS: HEMATOCRIT 39.2 % (42.0-52.0); HEMOGLOBIN 12.6 g/dl (13.5-17.5); MEAN CORPUSCULAR HEMOGLOBIN 28.2 pg (27.0-33.0); MEAN CORPUSCULAR HGB CONC 32.1 g/dl (32.0-36.5); MEAN CORPUSCULAR VOLUME 87.7 fl (80.0-96.0); PLATELET COUNT, AUTOMATED 274 10^3/uL (150-450); RED BLOOD COUNT 4.47 10^6/uL (4.30-6.10); WHITE BLOOD COUNT 10.2 10^3/uL (4.0-10.0)
[2023-08-07 10:13] LABS: HEMOGLOBIN A1c 5.3 % (4.0-6.0)
[2023-08-07 10:15] LABS: PERCENT SATURATION 9.2 % (19.7-50.0)
[2023-08-07 10:16] LABS: ALBUMIN 3.6 G/DL (3.2-5.2); BILIRUBIN,TOTAL 0.5 MG/DL (0.3-1.2); CALCIUM LEVEL 9.2 MG/DL (8.3-10.6); CREATININE FOR GFR 1.42 MG/DL (0.70-1.30); GLOMERULAR FILTRATION RATE 53.3 (>49); POTASSIUM SERUM 4.7 MMOL/L (3.5-5.1); THYROID STIMULATING HORMONE 1.114 uIU/ML (0.55-4.78); TOTAL PROTEIN 7.1 G/DL (5.7-8.2)
[2023-08-07 10:17] LABS: FERRITIN 70.2 NG/ML (10.5-307.3); FREE T4 1.21 NG/DL (0.89-1.76)
== END ==
LOC: M LAB 08:23
PROVIDERS: ATTEND Family Medicine
DX: I48.0 Paroxysmal atrial fibrillation (principal); E74.9 Disorder of carbohydrate metabolism, unspecified; Z98.84 Bariatric surgery status; D51.3 Other dietary vitamin B12 deficiency anemia; Z79.899 Other long term (current) drug therapy

== ENCOUNTER → 2023-09-08 | Outpatient (CLI) | payer MEDICARE | LOC: M PAIN 15:00 | PROVIDERS: ATTEND Anesthesiology | DX: G62.9 Polyneuropathy, unspecified (principal); F17.290 Nicotine dependence, other tobacco product, uncomplicated; Z79.1 Long term (current) use of non-steroidal anti-inflammatories (NSAID); Z79.899 Other long term (current) drug therapy; Z91.013 Allergy to seafood; Z88.8 Allergy status to other drugs, medicaments and biological substances ==

== ENCOUNTER → 2023-11-10 | Outpatient (CLI) | payer MEDICARE | LOC: M PAIN 11:15 | PROVIDERS: ATTEND Anesthesiology | DX: G62.9 Polyneuropathy, unspecified (principal); G89.29 Other chronic pain; R60.0 Localized edema; Z98.84 Bariatric surgery status; E78.5 Hyperlipidemia, unspecified; R73.03 Prediabetes; E53.8 Deficiency of other specified B group vitamins; G25.81 Restless legs syndrome; G47.33 Obstructive sleep apnea (adult) (pediatric); I48.0 Paroxysmal atrial fibrillation; K22.70 Barrett's esophagus without dysplasia; F41.0 Panic disorder [episodic paroxysmal anxiety]; Z79.899 Other long term (current) drug therapy; Z88.6 Allergy status to analgesic agent; Z88.8 Allergy status to other drugs, medicaments and biological substances; Z91.013 Allergy to seafood ==

== ENCOUNTER → 2023-12-29 | Outpatient (REF) | payer MEDICARE ==
[2023-12-29 13:10] LABS: BASO % 0.2 % (0.0-1.0); EOS % 0.4 % (0.0-3.0); HEMATOCRIT 44.4 % (42.0-52.0); HEMOGLOBIN 13.7 g/dl (13.5-17.5); LYMPH # 1.5 10^3/uL (1.5-5.0); LYMPH % 18.4 % (24.0-44.0); MEAN CORPUSCULAR HEMOGLOBIN 26.9 pg (27.0-33.0); MEAN CORPUSCULAR HGB CONC 30.9 g/dl (32.0-36.5); MEAN CORPUSCULAR VOLUME 87.1 fl (80.0-96.0); MONO # 0.8 10^3/uL (0.0-0.8); MONO % 9.2 % (2.0-8.0); NEUTROPHILS # 5.8 10^3/uL (1.5-8.5); NEUTROPHILS % 71.2 % (36.0-66.0); PLATELET COUNT, AUTOMATED 278 10^3/uL (150-450); WHITE BLOOD COUNT 8.2 10^3/uL (4.0-10.0)
[2023-12-29 13:13] LABS: TOTAL IRON BINDING CAPACITY 384 UG/DL (250-425)
[2023-12-29 13:14] LABS: ALKALINE PHOSPHATASE 99 U/L (46-116); ALT/SGPT 26 U/L (7.0-40); AST/SGOT 18 U/L (<34); BILIRUBIN,TOTAL 0.6 MG/DL (0.3-1.2); BLOOD UREA NITROGEN 23 MG/DL (9-23); CALCIUM LEVEL 9.9 MG/DL (8.3-10.6); CARBON DIOXIDE LEVEL 35 MMOL/L (20-31); CHLORIDE LEVEL 98 MMOL/L (98-107); CREATININE FOR GFR 1.16 MG/DL (0.70-1.30); GLOMERULAR FILTRATION RATE > 60.0 (>49); GLUCOSE, FASTING 111 MG/DL (74-106); IRON (FE) 41 UG/DL (65-175); MAGNESIUM LEVEL 2.6 MG/DL (1.8-2.4); PERCENT SATURATION 10.7 % (19.7-50.0); POTASSIUM SERUM 3.9 MMOL/L (3.5-5.1); SODIUM LEVEL 140 MMOL/L (136-145); TOTAL PROTEIN 7.8 G/DL (5.7-8.2)
[2023-12-29 13:16] LABS: FERRITIN 127.7 NG/ML (10.5-307.3); FREE T4 1.64 NG/DL (0.89-1.76); THYROID STIMULATING HORMONE 1.657 uIU/ML (0.55-4.78)
== END ==
LOC: M SFHCADAM 09:08
PROVIDERS: ATTEND Physician Assistant
DX: F41.1 Generalized anxiety disorder (principal); Z98.84 Bariatric surgery status; I95.9 Hypotension, unspecified; I48.0 Paroxysmal atrial fibrillation

== ENCOUNTER → 2023-12-29 | Outpatient (CLI) | payer MEDICARE | LOC: M PAIN 14:15 | PROVIDERS: ATTEND Anesthesiology | DX: G62.9 Polyneuropathy, unspecified (principal); Z98.84 Bariatric surgery status; R60.9 Edema, unspecified; E78.5 Hyperlipidemia, unspecified; R73.03 Prediabetes; E53.8 Deficiency of other specified B group vitamins; G25.81 Restless legs syndrome; G47.33 Obstructive sleep apnea (adult) (pediatric); M48.07 Spinal stenosis, lumbosacral region; Z79.899 Other long term (current) drug therapy; Z88.6 Allergy status to analgesic agent; Z88.8 Allergy status to other drugs, medicaments and biological substances; Z91.013 Allergy to seafood ==

== ENCOUNTER → 2023-12-29 | Outpatient (REF) | payer MEDICARE | LOC: M LABDRWAD 12:54 | PROVIDERS: ATTEND Internal Medicine | DX: K21.9 Gastro-esophageal reflux disease without esophagitis (principal); C15.9 Malignant neoplasm of esophagus, unspecified; K76.0 Fatty (change of) liver, not elsewhere classified ==

== ENCOUNTER → 2024-01-22 | Outpatient (REF) | payer MEDICARE | LOC: M LAB REF 20:50 | PROVIDERS: ATTEND Physician Assistant Medical | DX: L03.116 Cellulitis of left lower limb (principal) ==

== ENCOUNTER → 2024-01-28 | Outpatient (CLI) | payer MEDICARE | LOC: M PLAIMG 12:39 | PROVIDERS: ATTEND Anesthesiology | DX: G62.9 Polyneuropathy, unspecified (principal); M51.26 Other intervertebral disc displacement, lumbar region; M51.27 Other intervertebral disc displacement, lumbosacral region; M51.24 Other intervertebral disc displacement, thoracic region ==

== ENCOUNTER → 2024-02-16 | Outpatient (CLI) | payer MEDICARE ==
[2024-02-16 12:08] LABS: IONIZED CALCIUM 4.4 MG/DL (4.5-5.3)
[2024-02-16 12:12] LABS: BASO % 0.1 % (0.0-1.0); EOS # 0.1 10^3/uL (0.0-0.5); EOS % 0.5 % (0.0-3.0); HEMATOCRIT 36.5 % (42.0-52.0); HEMOGLOBIN 11.9 g/dl (13.5-17.5); LYMPH # 1.5 10^3/uL (1.5-5.0); LYMPH % 16.8 % (24.0-44.0); MEAN CORPUSCULAR HEMOGLOBIN 26.5 pg (27.0-33.0); MEAN CORPUSCULAR HGB CONC 32.6 g/dl (32.0-36.5); MEAN CORPUSCULAR VOLUME 81.3 fl (80.0-96.0); MONO % 10.6 % (2.0-8.0); NEUTROPHILS # 6.5 10^3/uL (1.5-8.5); NEUTROPHILS % 70.9 % (36.0-66.0); PLATELET COUNT, AUTOMATED 332 10^3/uL (150-450); RED BLOOD COUNT 4.49 10^6/uL (4.30-6.10); WHITE BLOOD COUNT 9.2 10^3/uL (4.0-10.0)
[2024-02-16 12:32] LABS: D-DIMER QUANT 0.57 ug/mL (<0.5); INR 0.98; PARTIAL THROMBOPLASTIN TIME 34.6 SECONDS (24.8-34.2); PROTHROMBIN TIME 13.3 SECONDS (12.5-14.5)
[2024-02-16 12:38] LABS: ALBUMIN 3.2 G/DL (3.2-5.2); ALKALINE PHOSPHATASE 83 U/L (40-129); ALT/SGPT 41 U/L (7.0-40); AST/SGOT 24 U/L (<34); BILIRUBIN,TOTAL 0.4 MG/DL (0.3-1.2); BLOOD UREA NITROGEN 54 MG/DL (9-23); CALCIUM LEVEL 9.2 MG/DL (8.3-10.6); CARBON DIOXIDE LEVEL 35 MMOL/L (20-31); CHLORIDE LEVEL 97 MMOL/L (98-107); CHOLESTEROL LEVEL 194 MG/DL (<200); CREATININE FOR GFR 1.25 MG/DL (0.70-1.30); GLOMERULAR FILTRATION RATE > 60.0 (>49); GLUCOSE, FASTING 107 MG/DL (74-106); HDL CHOLESTEROL 66.7 MG/DL (>40); LDL CHOLESTEROL 113.1 MG/DL (<100); MAGNESIUM LEVEL 2.7 MG/DL (1.8-2.4); NON-HDL-C 127.3 MG/DL; POTASSIUM SERUM 3.3 MMOL/L (3.5-5.1); SODIUM LEVEL 138 MMOL/L (136-145); TOTAL PROTEIN 7.2 G/DL (5.7-8.2); TRIGLYCERIDES LEVEL 71 MG/DL (<150)
[2024-02-16 12:39] LABS: VITAMIN B12 LEVEL 475 PG/ML (211-911)
[2024-02-16 12:40] LABS: FOLATE > 24.00 NG/ML (>5.4)
[2024-02-17 12:21] LABS: CRYOGLOBULINS NEGATIVE (NEGATIVE)
[2024-02-20 00:33] LABS: PROTEIN C FUNCTIONAL ACTIVITY 155 % normal (70-180); PROTEIN S FUNCTIONAL ACTIVITY 113 % normal (70-150)
[2024-02-20 02:33] LABS: COPPER PLASMA 158 mcg/dL (70-175); ZINC PLASMA 63 mcg/dL (60-130)
[2024-02-21 14:22] LABS: VITAMIN C, ASCORBIC ACID 2.2 mg/dL (0.2-2.1)
[2024-02-22 06:25] LABS: VITAMIN A, RETINOL LEVEL 102 mcg/dL (38-98); VITAMIN E(ALPHA TOCOPHEROL) 15.7 mg/L (5.7-19.9); VITAMIN E(GAMMA TOCOPHEROL) < 1.0 mg/L (<=4.3)
[2024-02-22 08:11] LABS: VITAMIN B1 LEVEL WHOLE BLOOD 204 nmol/L (78-185)
[2024-02-22 16:47] LABS: VITAMIN B6,PYRIDOXAL PHOSPHATE 7.2 ng/mL (2.1-21.7)
== END ==
LOC: M PLALAB 10:37 → M LAB 10:37
PROVIDERS: ATTEND Physician Assistant
DX: I87.332 Chronic venous hypertension (idiopathic) with ulcer and inflammation of left lower extremity (principal); Z79.899 Other long term (current) drug therapy; Z79.01 Long term (current) use of anticoagulants

== ENCOUNTER → 2024-02-23 | Outpatient (CLI) | payer MEDICARE | LOC: M RAD 08:22 | PROVIDERS: ATTEND Internal Medicine | DX: C15.9 Malignant neoplasm of esophagus, unspecified (principal); K76.0 Fatty (change of) liver, not elsewhere classified; K21.9 Gastro-esophageal reflux disease without esophagitis; K80.20 Calculus of gallbladder without cholecystitis without obstruction ==

== ENCOUNTER → 2024-04-12 | Outpatient (CLI) | payer MEDICARE | LOC: M RAD 13:10 | PROVIDERS: ATTEND Physician Assistant | DX: I87.332 Chronic venous hypertension (idiopathic) with ulcer and inflammation of left lower extremity (principal) ==

== ENCOUNTER → 2024-05-17 | Outpatient (CLI) | payer MEDICARE ==
[2024-05-17 14:06] LABS: HEMATOCRIT 40.8 % (42.0-52.0); HEMOGLOBIN 12.5 g/dl (13.5-17.5); MEAN CORPUSCULAR HEMOGLOBIN 25.9 pg (27.0-33.0); MEAN CORPUSCULAR HGB CONC 30.6 g/dl (32.0-36.5); MEAN CORPUSCULAR VOLUME 84.5 fl (80.0-96.0); PLATELET COUNT, AUTOMATED 314 10^3/uL (150-450); RED BLOOD COUNT 4.83 10^6/uL (4.30-6.10); WHITE BLOOD COUNT 8.7 10^3/uL (4.0-10.0)
[2024-05-17 14:17] LABS: HEMOGLOBIN A1c 5.5 % (4.0-6.0)
[2024-05-17 14:35] LABS: ALBUMIN 3.7 G/DL (3.2-5.2); ALKALINE PHOSPHATASE 88 U/L (40-129); ALT/SGPT 25 U/L (7.0-40); AST/SGOT 20 U/L (<34); BILIRUBIN,TOTAL 0.4 MG/DL (0.3-1.2); BLOOD UREA NITROGEN 29 MG/DL (9-23); CALCIUM LEVEL 9.2 MG/DL (8.3-10.6); CARBON DIOXIDE LEVEL 35 MMOL/L (20-31); CHLORIDE LEVEL 98 MMOL/L (98-107); CHOLESTEROL LEVEL 193 MG/DL (<200); CHOLESTEROL RISK RATIO 2.67 (<5); CREATININE FOR GFR 1.15 MG/DL (0.70-1.30); GLOMERULAR FILTRATION RATE > 60.0 (>49); GLUCOSE, FASTING 107 MG/DL (74-106); HDL CHOLESTEROL 72.2 MG/DL (>40); IRON (FE) 25 UG/DL (65-175); LDL CHOLESTEROL 105.2 MG/DL (<100); NON-HDL-C 120.8 MG/DL; PERCENT SATURATION 6.7 % (19.7-50.0); POTASSIUM SERUM 3.6 MMOL/L (3.5-5.1); SODIUM LEVEL 139 MMOL/L (136-145); TOTAL IRON BINDING CAPACITY 371 UG/DL (250-425); TOTAL PROTEIN 7.3 G/DL (5.7-8.2); TRIGLYCERIDES LEVEL 78 MG/DL (<150)
[2024-05-17 14:39] LABS: FERRITIN 67.6 NG/ML (10.5-307.3); FOLATE > 24.00 NG/ML (>5.4); TOTAL 25(OH) VITAMIN D 30.2 NG/ML (20.0-100.0); VITAMIN B12 LEVEL 364 PG/ML (211-911)
== END ==
LOC: M PLALAB 10:48
PROVIDERS: ATTEND Family Medicine
DX: D51.9 Vitamin B12 deficiency anemia, unspecified (principal); K91.2 Postsurgical malabsorption, not elsewhere classified; E74.9 Disorder of carbohydrate metabolism, unspecified; G62.9 Polyneuropathy, unspecified; D50.0 Iron deficiency anemia secondary to blood loss (chronic); E78.2 Mixed hyperlipidemia; I87.312 Chronic venous hypertension (idiopathic) with ulcer of left lower extremity

== ENCOUNTER → 2024-06-14 | Outpatient (CLI) | payer MEDICARE | LOC: M RAD 13:42 | PROVIDERS: ATTEND Physician Assistant | DX: I87.321 Chronic venous hypertension (idiopathic) with inflammation of right lower extremity (principal); I87.332 Chronic venous hypertension (idiopathic) with ulcer and inflammation of left lower extremity ==

== ENCOUNTER → 2024-10-12 | Outpatient (CLI) | payer MEDICARE ==
[~2024-10-12] MED LIST changes: +FERR325T3 PO; +FOLI1TAB11 PO; +MULTTAB61 PO; +POTA-298 PO; +PREG-35 PO; +SPIR100T3 PO; +ZOLO100T PO
== END ==
LOC: M ADAMS 14:14
PROVIDERS: ATTEND Physician Assistant
DX: R06.09 Other forms of dyspnea (principal); R42 Dizziness and giddiness

== ENCOUNTER → 2024-10-12 | Outpatient (REF) | payer MEDICARE ==
[2024-10-12 17:14] LABS: PLATELET COUNT, AUTOMATED 261 10^3/uL (150-450)
[2024-10-12 17:39] LABS: CALCIUM LEVEL 8.9 MG/DL (8.3-10.6); CARBON DIOXIDE LEVEL 35.0 MMOL/L (20-31); CHLORIDE LEVEL 94.0 MMOL/L (98-107); CREATININE FOR GFR 1.36 MG/DL (0.70-1.30); GLOMERULAR FILTRATION RATE 57.4 (>49); MAGNESIUM LEVEL 2.8 MG/DL (1.8-2.4); POTASSIUM SERUM 4.2 MMOL/L (3.5-5.1); SODIUM LEVEL 140.0 MMOL/L (136-145)
== END ==
LOC: M SFHCADAM 14:13
PROVIDERS: ATTEND Physician Assistant
DX: R06.09 Other forms of dyspnea (principal); R42 Dizziness and giddiness

== ENCOUNTER → 2024-10-13 | Outpatient (CLI) | payer MEDICARE ==
[~2024-10-13] MED LIST changes: +ISOVUE-370 76% 100 ML VIAL As Ordered ONE
== END ==
LOC: M RAD 09:34
PROVIDERS: ATTEND Physician Assistant
DX: I51.7 Cardiomegaly (principal); R91.8 Other nonspecific abnormal finding of lung field; R06.09 Other forms of dyspnea; R42 Dizziness and giddiness
CPT/HCPCS: 71275; Q9967

== ENCOUNTER → 2024-10-18 | Outpatient (CLI) | payer MEDICARE ==
[~2024-10-18] MED LIST changes: -ISOVUE-370 76% 100 ML VIAL As Ordered ONE
[2024-10-18 13:02] LABS: CALCIUM LEVEL 9.3 MG/DL (8.3-10.6); CARBON DIOXIDE LEVEL 35.0 MMOL/L (20-31); CHLORIDE LEVEL 94.0 MMOL/L (98-107); CREATININE FOR GFR 1.23 MG/DL (0.70-1.30); GLOMERULAR FILTRATION RATE 64.8 (>49); MAGNESIUM LEVEL 2.3 MG/DL (1.8-2.4); POTASSIUM SERUM 3.6 MMOL/L (3.5-5.1); SODIUM LEVEL 141.0 MMOL/L (136-145)
== END ==
LOC: M PLALAB 11:25
PROVIDERS: ATTEND Physician Assistant
DX: R06.09 Other forms of dyspnea (principal)

== ENCOUNTER → 2024-10-25 | Outpatient (CLI) | payer MEDICARE ==
[2024-10-25 15:13] LABS: CALCIUM LEVEL 9.3 MG/DL (8.3-10.6); CARBON DIOXIDE LEVEL 37.0 MMOL/L (20-31); CHLORIDE LEVEL 92.0 MMOL/L (98-107); CREATININE FOR GFR 1.34 MG/DL (0.70-1.30); GLOMERULAR FILTRATION RATE 58.4 (>49); MAGNESIUM LEVEL 2.6 MG/DL (1.8-2.4); POTASSIUM SERUM 3.8 MMOL/L (3.5-5.1); SODIUM LEVEL 139.0 MMOL/L (136-145)
== END ==
LOC: M PLALAB 12:10
PROVIDERS: ATTEND Physician Assistant
DX: R06.09 Other forms of dyspnea (principal)

== ENCOUNTER → 2025-01-02 | Outpatient (CLI) | payer MEDICARE | LOC: M PLAIMG 12:38 | PROVIDERS: ATTEND Physician Assistant | DX: R06.09 Other forms of dyspnea (principal) ==

== ENCOUNTER 2025-01-15 09:21 | Emergency (ER) | payer MEDICARE ==
[~2025-01-15] VITALS: Ht 177.8 cm; Wt 125.8 kg
[2025-01-15 12:00] LABS: BASO # 0.0 10^3/uL (0.0-0.2); BASO % 0.2 % (0.0-1.0); EOS # 0.0 10^3/uL (0.0-0.5); EOS % 0.4 % (0.0-3.0); LYMPH # 1.2 10^3/uL (1.5-5.0); LYMPH % 12.9 % (24.0-44.0); MONO # 1.3 10^3/uL (0.0-0.8); MONO % 14.7 % (2.0-8.0); NEUTROPHILS # 6.4 10^3/uL (1.5-8.5); NEUTROPHILS % 71.5 % (36.0-66.0); PLATELET COUNT, AUTOMATED 226 10^3/uL (150-450)
[2025-01-15 12:36] LABS: CALCIUM LEVEL 9.4 MG/DL (8.3-10.6); CARBON DIOXIDE LEVEL 34.0 MMOL/L (20-31); CHLORIDE LEVEL 91.0 MMOL/L (98-107); CREATININE FOR GFR 1.66 MG/DL (0.70-1.30); GLOMERULAR FILTRATION RATE 44.9 (>49); POTASSIUM SERUM 3.6 MMOL/L (3.5-5.1); SODIUM LEVEL 139.0 MMOL/L (136-145)
[2025-01-15 12:38] LABS: C REACTIVE PROTEIN QUANTITATIV 16.36 MG/DL (<1.0)
[2025-01-15] MEDS ORDERED: CEPHALEXIN 500 MG CAP PO ONE (13:40)
[2025-01-15 13:45] VITALS: BP 138/78; TEMP 98.1; O2SAT 98
== END 2025-01-15 13:54 | disposition home or self-care (01) ==
LOC: M ED 09:21
DX: L03.115 Cellulitis of right lower limb (principal); N18.9 Chronic kidney disease, unspecified; G25.81 Restless legs syndrome; G47.33 Obstructive sleep apnea (adult) (pediatric); I10 Essential (primary) hypertension; R73.03 Prediabetes; E55.9 Vitamin D deficiency, unspecified; F90.9 Attention-deficit hyperactivity disorder, unspecified type; Z98.84 Bariatric surgery status; Z91.013 Allergy to seafood; Z79.2 Long term (current) use of antibiotics; Z79.899 Other long term (current) drug therapy